=== PATIENT | female | born 1980 | race Caucasian/White ===

== ENCOUNTER 2016-08-23 01:47 | Emergency (ER) | payer MEDICARE, MEDICAID ==
[~2016-08-23 01:47] MED LIST: CLONI1TA PO; HARV1TAB PO; LEVO125T41 PO; LOES1TAB12 PO; NALT50TA4 PO; NAPR500T2 PO; PRIL20CA9 PO; SERO50TA PO
[2016-08-23] MEDS ORDERED: MAALOX 30 ML SUSP *UDC As Ordered ONE (03:38)
[2016-08-23] MEDS ORDERED: KETOROLAC 30 MG/ML VIAL (J1885) As Ordered ONE (03:49)
--- NOTE | 2016-08-23 04:49 | EDDOCDS ---
Physician Documentation [facility] Name: Jane Peck Age: 36 yrs Sex: Female : 1980 Arrival Date: 08/23/2016 Time: 01:47 Bed 11 Private MD: Rico Rivas D Disposition: 08/23/16 04:28 Discharged to Home/Self Care. Impression: Pain in left foot, Sprain of other specified parts of left knee. - Condition is Stable. - Discharge Instructions: Elastic Bandage and RICE, Crutch Use, Musculoskeletal Pain, Crutch Use, [id number]. - Prescriptions for Naprosyn 500 mg Oral Tablet - take 1 tablet by ORAL route 2 times per day take with food; 30 tablet. - Medication Reconciliation, Local Pharmacy Hours, Work Release Form - 2 day form. - Follow up: [facility]; When: Call to arrange an appointment; Reason: Continuance of care. - Problem is an acute exacerbation. - Symptoms have improved. Historical: - Allergies: PENICILLINS (Hives); - Home Meds: 1. levothyroxine 125 mcg Oral tab 1 tab once daily 2. omeprazole 40 mg Oral cpDR 2 times per day 3. Tylenol Oral 500mg (Last dose: 08/23/2016 01:00) - PMHx: Anxiety; GERD; Hepatitis C; Heroin Addiction - former; Hypothyroidism; Rehab from Heroin (Clean 55 days); - PSHx: Tubal ligation; - Social history: Smoking status: Patient uses tobacco products, heavy tobacco smoker. No barriers to communication noted, The patient speaks fluent Telugu, Speaks appropriately for age. - Family history: Not pertinent. - : The pt / caregiver states he / she is not on anticoagulants. Home medication list is obtained from the patient. - Exposure Risk Screening:: None identified. 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 2 in. (157.48 cm); 04:33 BP 130 / 70; Pulse 62; Resp 18; Temp 99.4(TE); Pulse Ox 97% on R/A; Pain 6/10; eric 01:57 Body Mass Index 34.75 (86.18 kg, 157.48 cm) cz MDM: 03:36 Alum-Mag Hydroxide-Simeth Suspension 225 mg-200 mg-25 mg/5 mL 30 ml PO once ordered. mm11 03:37 Foot, Complete Ordered. EDMS 03:37 Knee, Complete Ordered. EDMS 03:38 Toes Ordered. EDMS 03:45 ketorolac 60 mg IM once ordered. mm11 04:27 Crutches ordered. mm11 Administered Medications: 03:42 Drug: Alum-Mag Hydroxide-Simeth 30 ml [aluminum-mag hydroxide-simethicone 225 mg-200 mlc mg-25 mg/5 mL oral susp (30 mL)] Route: PO; 04:48 Follow up: Response: No Adverse Reaction mlc 04:14 Drug: ketorolac 60 mg [ketorolac 30 mg/mL (1 mL) injection solution (2 mL)] Route: IM; mlc Site: left gluteus; 04:48 Follow up: Response: Pain is decreased mlc Signatures: Dispatcher [employer] Mikael Winkler, RN RN cz Hoang Valiente, DO mm11 Jaquelin Pettit RN RN mlc IRMA
--- NOTE | 2016-08-23 04:49 | EDDOCDS ---
Nurse's Notes [facility] Name: Jane Peck Age: 36 yrs Sex: Female : 1980 Arrival Date: 08/23/2016 Time: 01:47 Bed 11 Private MD: Rico Rivas D Diagnosis: Pain in left foot;Sprain of other specified parts of left knee Presentation: 08/23 01:52 Presenting complaint: Patient states: she fell down stairs when going outside to [facility] injured left knee and left foot incident occurred about an hour ago. Adult Sepsis Screening: The patient does not have new or worsening altered mentation. Patient's respiratory rate is less than 22. Systolic blood pressure is greater than 100. Patient has a qSOFA score of 0- Negative Sepsis Screen. Suicide/Homicide risk assessment- the patient denies having any suicidal and/or homicidal ideations and does not present with any other emotional, behavioral or mental health complaints. 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 Transition of care: patient was not received from another setting of care. 01:52 Acuity: SONAL Level 4 cz 01:52 Method Of Arrival: Wheelchair cz Triage Assessment: 01:57 General: Appears uncomfortable. Pain: Location: left foot and left leg Pain currently cz is 7 out of 10 on a pain scale. HIV screening NA for this visit Offered previously. 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 levothyroxine 125 mcg Oral tab 1 tab once daily 2. omeprazole 40 mg Oral cpDR 2 times per day 3. Tylenol Oral 500mg (Last dose: 08/23/2016 01:00) - PMHx: Anxiety; GERD; Hepatitis C; Heroin Addiction - former; Hypothyroidism; Rehab from Heroin (Clean 55 days); - PSHx: Tubal ligation; - Social history: Smoking status: Patient uses tobacco products, heavy tobacco smoker. No barriers to communication noted, The patient speaks fluent Nepalese, Speaks appropriately for age. - Family history: Not pertinent. - : The pt / caregiver states he / she is not on anticoagulants. Home medication list is obtained from the patient. - Exposure Risk Screening:: None identified. Screenin:42 Screening information is obtained from the patient. Fall risk: No risks identified. mlc Assistance ADL's: requires no assistance with activities of daily living. Abuse/DV Screen: The patient / caregiver reports he/she is: not in a situation that causes fear, pain or injury. Nutritional screening: No deficits noted. Advance Directives: There is no active DNR order. home support is adequate. Assessment: 03:42 General: Appears in no apparent distress, comfortable, pt up and walking around room. . mlc Pain: Location: dorsum of left foot, left first toe, left second toe, left third toe, left fourth toe and left fifth toe Pain currently is 8 out of 10 on a pain scale. Neurological: Level of Consciousness is awake, alert, Oriented to person, place, time. Cardiovascular: Pulses are all present. Respiratory: Airway is patent Respiratory effort is even, unlabored, Respiratory pattern is regular. Derm: Skin is normal, Bruising that is on left first toe. Musculoskeletal: Circulation, motion, and sensation intact Range of motion intact in all extremities. 03:42 General: pt reports heartburn, pt medicated per order. mlc 04:14 Reassessment: Patient appears in no apparent distress at this time. pt medicated per [facility] order. resp easy/unlabored. . 04:47 General: Appears in no apparent distress, comfortable, Behavior is cooperative. [facility] Neurological: Level of Consciousness is awake, alert, Oriented to person, place, time. Respiratory: Airway is patent Respiratory effort is even, unlabored, Respiratory pattern is regular. Vital Signs: 01:57 BP 147 / 73; Pulse 100; Resp 16; Temp 99.7; Pulse Ox 96% on R/A; Weight 86.18 kg; cz Height 5 ft. 2 in. (157.48 cm); 04:33 BP 130 / 70; Pulse 62; Resp 18; Temp 99.4(TE); Pulse Ox 97% on R/A; Pain 6/10; eric 01:57 Body Mass Index 34.75 (86.18 kg, 157.48 cm) Vitals: 01:57 Log In Time: August 23, 2016 at 01:47. ED Course: 01:49 Patient visited by Greg Tom, Reg. pm4 01:49 Rico Rivas is Private Physician. pm4 01:49 Patient moved to Waiting pm4 01:51 Patient moved to Triage 1 01:55 Triage Initiated cz 02:01 Patient moved to Pre RCE cz 02:21 Patient moved to MTA Wait cz 02:52 Patient moved to Pre RCE cz 03:06 Jaquelin Pettit RN is Primary Nurse. cz 03:06 Patient moved to 11 cz 03:20 Patient visited by Nasreen Ny PCA. eric 03:29 Hoang Valiente DO is Attending Physician. mm11 03:29 Patient visited by Hoang Valiente DO. mm11 03:37 Patient visited by Hoang Valiente DO. mm11 03:42 The patient / caregiver is instructed regarding the plan of care and ED course. mlc 03:44 Patient visited by Jaquelin Pettit RN. mlc 04:03 Patient moved to Radiology galdino 04:14 Patient visited by Jaquelin Pettit RN. mlc 04:15 Patient moved to 11 mlc 04:27 [facility] is Referral Physician. mm11 04:33 Patient visited by Nasreen Ny PCA. eric 04:47 No IV's were initiated during this patient's visit. No procedures done that require mlc assistance. Administered Medications: 03:42 Drug: Alum-Mag Hydroxide-Simeth 30 ml [aluminum-mag hydroxide-simethicone 225 mg-200 mlc mg-25 mg/5 mL oral susp (30 mL)] Route: PO; 04:48 Follow up: Response: No Adverse Reaction mlc 04:14 Drug: ketorolac 60 mg [ketorolac 30 mg/mL (1 mL) injection solution (2 mL)] Route: IM; mlc Site: left gluteus; 04:48 Follow up: Response: Pain is decreased [facility] Order Results: There are currently no results for this order. Outcome: 04:28 Discharge ordered by Provider. mm11 04:47 Discharge Assessment: Patient awake, alert and oriented x 3. No cognitive and/or mlc functional deficits noted. Patient verbalized understanding of disposition instructions. patient administered narcotics - no. The following High Risk Discharge criteria are identified: None. Discharged to home with crutches, with significant other. Condition: good Condition: stable. Discharge instructions given to patient, Instructed on discharge instructions, follow up and referral plans. medication usage, Rest, Ice, Compression and Elevation. crutch walking, Demonstrated understanding of instructions, medications, Pt was receptive of discharge instructions/ teaching. Prescriptions given X 1. No special radiology studies were completed. Property sent home with patient. 04:48 Patient left the ED. [facility] Signatures: Mikael Cano, RN RN Felipe Perez Matthew, DO mm11 Nasreen Ny, NAPHTHOL SOAPING MACHINE OPERATOR NAPHTHOL SOAPING MACHINE OPERATOR Jaquelin Cortez,MINGO AGUILA [facility] Greg Tom, Reg Reg pm4 MTDD
--- NOTE | 2016-08-23 07:20 | REP ---
Clinical: Trauma. Technique: AP, lateral, bilateral oblique views left foot . Findings: The osseous structures and joint spaces are intact and normal. There is no evidence for acute fracture or dislocation. Surrounding soft tissues are unremarkable. No subcutaneous emphysema or radiodense foreign body. Impression: No acute fracture or dislocation. Signed by Tomás Berry MD 08/23/2016 07:12 A
--- NOTE | 2016-08-23 07:21 | REP ---
Clinical: Trauma. Technique: AP, lateral, bilateral oblique and sunrise views left knee . Findings: The osseous structures and joint spaces are intact and normal. There is no evidence for acute fracture or dislocation. No joint effusion is appreciated. Surrounding soft tissues are unremarkable. No subcutaneous emphysema or radiodense foreign body. Impression: No acute fracture or dislocation. Signed by Tomás Berry MD 08/23/2016 07:13 A
--- NOTE | 2016-08-25 05:49 | EDDOCDS ---
Physician Documentation [facility] Name: Jane Peck Age: 36 yrs Sex: Female : 1980 Arrival Date: 08/23/2016 Time: 01:47 Bed 11 Private MD: Rico Rivas D Disposition: 08/23/16 04:28 Discharged to Home/Self Care. Impression: Pain in left foot, Sprain of other specified parts of left knee. - Condition is Stable. - Discharge Instructions: Elastic Bandage and RICE, Crutch Use, Musculoskeletal Pain, Crutch Use, [id number]. - Prescriptions for Naprosyn 500 mg Oral Tablet - take 1 tablet by ORAL route 2 times per day take with food; 30 tablet. - Medication Reconciliation, Local Pharmacy Hours, Work Release Form - 2 day form. - Follow up: [facility]; When: Call to arrange an appointment; Reason: Continuance of care. - Problem is an acute exacerbation. - Symptoms have improved. Historical: - Allergies: PENICILLINS (Hives); - Home Meds: 1. levothyroxine 125 mcg Oral tab 1 tab once daily 2. omeprazole 40 mg Oral cpDR 2 times per day 3. Tylenol Oral 500mg (Last dose: 08/23/2016 01:00) - PMHx: Anxiety; GERD; Hepatitis C; Heroin Addiction - former; Hypothyroidism; Rehab from Heroin (Clean 55 days); - PSHx: Tubal ligation; - Social history: Smoking status: Patient uses tobacco products, heavy tobacco smoker. No barriers to communication noted, The patient speaks fluent Sinhala, Speaks appropriately for age. - Family history: Not pertinent. - : The pt / caregiver states he / she is not on anticoagulants. Home medication list is obtained from the patient. - Exposure Risk Screening:: None identified. 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 2 in. (157.48 cm); 04:33 BP 130 / 70; Pulse 62; Resp 18; Temp 99.4(TE); Pulse Ox 97% on R/A; Pain 6/10; eric 01:57 Body Mass Index 34.75 (86.18 kg, 157.48 cm) cz MDM: 03:36 Alum-Mag Hydroxide-Simeth Suspension 225 mg-200 mg-25 mg/5 mL 30 ml PO once ordered. mm11 03:37 Foot, Complete Ordered. EDMS 03:37 Knee, Complete Ordered. EDMS 03:38 Toes Ordered. EDMS 03:45 ketorolac 60 mg IM once ordered. mm11 04:27 Crutches ordered. mm11 04:53 Financial registration complete. hs2 04:54 [facility] Payment Agreement was scanned into [employer] and attached to record. hs2 12:12 T-Sheet-- Draft Copy was scanned into [employer] and attached to record. gb Administered Medications: 03:42 Drug: Alum-Mag Hydroxide-Simeth 30 ml [aluminum-mag hydroxide-simethicone 225 mg-200 mlc mg-25 mg/5 mL oral susp (30 mL)] Route: PO; 04:48 Follow up: Response: No Adverse Reaction mlc 04:14 Drug: ketorolac 60 mg [ketorolac 30 mg/mL (1 mL) injection solution (2 mL)] Route: IM; mlc Site: left gluteus; 04:48 Follow up: Response: Pain is decreased mlc Signatures: Dispatcher [employer] EDMikael Lay RN RN cz Sindhu Waller, Reg Reg gb Hoang Valiente, DO mm11 Jaquelin Pettit RN RN [facility] Yudi Tarango, Reg Reg hs2 The chart was reviewed and I authenticate all verbal orders and agree with the evaluation and treatment provided.Attachments: 04:54 [facility] Payment Agreement hs2 12:12 T-Sheet-- Draft Copy gb Chart Complete MTDD
--- NOTE | 2016-08-25 05:49 | EDDOCDS ---
Nurse's Notes [facility] Name: Jane Peck Age: 36 yrs Sex: Female : 1980 Arrival Date: 08/23/2016 Time: 01:47 Bed 11 Private MD: Rico Rivas D Diagnosis: Pain in left foot;Sprain of other specified parts of left knee Presentation: 08/23 01:52 Presenting complaint: Patient states: she fell down stairs when going outside to [facility] injured left knee and left foot incident occurred about an hour ago. Adult Sepsis Screening: The patient does not have new or worsening altered mentation. Patient's respiratory rate is less than 22. Systolic blood pressure is greater than 100. Patient has a qSOFA score of 0- Negative Sepsis Screen. Suicide/Homicide risk assessment- the patient denies having any suicidal and/or homicidal ideations and does not present with any other emotional, behavioral or mental health complaints. 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 Transition of care: patient was not received from another setting of care. 01:52 Acuity: SONAL Level 4 cz 01:52 Method Of Arrival: Wheelchair cz Triage Assessment: 01:57 General: Appears uncomfortable. Pain: Location: left foot and left leg Pain currently cz is 7 out of 10 on a pain scale. HIV screening NA for this visit Offered previously. 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 levothyroxine 125 mcg Oral tab 1 tab once daily 2. omeprazole 40 mg Oral cpDR 2 times per day 3. Tylenol Oral 500mg (Last dose: 08/23/2016 01:00) - PMHx: Anxiety; GERD; Hepatitis C; Heroin Addiction - former; Hypothyroidism; Rehab from Heroin (Clean 55 days); - PSHx: Tubal ligation; - Social history: Smoking status: Patient uses tobacco products, heavy tobacco smoker. No barriers to communication noted, The patient speaks fluent Liberian, Speaks appropriately for age. - Family history: Not pertinent. - : The pt / caregiver states he / she is not on anticoagulants. Home medication list is obtained from the patient. - Exposure Risk Screening:: None identified. Screenin:42 Screening information is obtained from the patient. Fall risk: No risks identified. mlc Assistance ADL's: requires no assistance with activities of daily living. Abuse/DV Screen: The patient / caregiver reports he/she is: not in a situation that causes fear, pain or injury. Nutritional screening: No deficits noted. Advance Directives: There is no active DNR order. home support is adequate. Assessment: 03:42 General: Appears in no apparent distress, comfortable, pt up and walking around room. . mlc Pain: Location: dorsum of left foot, left first toe, left second toe, left third toe, left fourth toe and left fifth toe Pain currently is 8 out of 10 on a pain scale. Neurological: Level of Consciousness is awake, alert, Oriented to person, place, time. Cardiovascular: Pulses are all present. Respiratory: Airway is patent Respiratory effort is even, unlabored, Respiratory pattern is regular. Derm: Skin is normal, Bruising that is on left first toe. Musculoskeletal: Circulation, motion, and sensation intact Range of motion intact in all extremities. 03:42 General: pt reports heartburn, pt medicated per order. mlc 04:14 Reassessment: Patient appears in no apparent distress at this time. pt medicated per [facility] order. resp easy/unlabored. . 04:47 General: Appears in no apparent distress, comfortable, Behavior is cooperative. [facility] Neurological: Level of Consciousness is awake, alert, Oriented to person, place, time. Respiratory: Airway is patent Respiratory effort is even, unlabored, Respiratory pattern is regular. Vital Signs: 01:57 BP 147 / 73; Pulse 100; Resp 16; Temp 99.7; Pulse Ox 96% on R/A; Weight 86.18 kg; cz Height 5 ft. 2 in. (157.48 cm); 04:33 BP 130 / 70; Pulse 62; Resp 18; Temp 99.4(TE); Pulse Ox 97% on R/A; Pain 6/10; eric 01:57 Body Mass Index 34.75 (86.18 kg, 157.48 cm) Vitals: 01:57 Log In Time: August 23, 2016 at 01:47. ED Course: 01:49 Patient visited by Greg Tom, Reg. pm4 01:49 Rico Rivas is Private Physician. pm4 01:49 Patient moved to Waiting pm4 01:51 Patient moved to Triage 1 01:55 Triage Initiated cz 02:01 Patient moved to Pre RCE cz 02:21 Patient moved to MTA Wait cz 02:52 Patient moved to Pre RCE cz 03:06 Jaquelin Pettit RN is Primary Nurse. cz 03:06 Patient moved to 11 cz 03:20 Patient visited by Nasreen Ny PCA. eric 03:29 Hoang Valiente DO is Attending Physician. mm11 03:29 Patient visited by Hoang Valiente DO. mm11 03:37 Patient visited by Hoang Valiente DO. mm11 03:42 The patient / caregiver is instructed regarding the plan of care and ED course. mlc 03:44 Patient visited by Jaquelin Pettit RN. mlc 04:03 Patient moved to Radiology galdino 04:14 Patient visited by Jaquelin Pettit RN. mlc 04:15 Patient moved to 11 mlc 04:27 [facility] is Referral Physician. mm11 04:33 Patient visited by Nasreen Ny PCA. eric 04:47 No IV's were initiated during this patient's visit. No procedures done that require mlc assistance. 04:54 [facility] Payment Agreement was scanned into [employer] and attached to record. hs2 04:58 Patient name changed from Jane\S\\S\Cisco\S\ to Jane\S\ \S\Cisco. EDMS 07:33 Foot, Complete Returned. EDMS 07:33 Knee, Complete Returned. EDMS 12:12 T-Sheet-- Draft Copy was scanned into [employer] and attached to record. gb Administered Medications: 03:42 Drug: Alum-Mag Hydroxide-Simeth 30 ml [aluminum-mag hydroxide-simethicone 225 mg-200 mlc mg-25 mg/5 mL oral susp (30 mL)] Route: PO; 04:48 Follow up: Response: No Adverse Reaction mlc 04:14 Drug: ketorolac 60 mg [ketorolac 30 mg/mL (1 mL) injection solution (2 mL)] Route: IM; mlc Site: left gluteus; 04:48 Follow up: Response: Pain is decreased mlc Order Results: Radiology Order: Foot, Complete Test: Foot, Complete REASON FOR EXAMINATION: Trauma; Clinical: Trauma.; ; Technique: AP, lateral, bilateral oblique views left foot .; ; Findings: The osseous structures and joint spaces are intact and normal. There; is no evidence for acute fracture or dislocation. Surrounding soft tissues are; unremarkable. No subcutaneous emphysema or radiodense foreign body.; ; Impression:; No acute fracture or dislocation.; ; ; Signed by; Tomás Berry MD 08/23/2016 07:12 A; Radiology Order: Knee, Complete Test: Knee, Complete REASON FOR EXAMINATION: Trauma; Clinical: Trauma.; ; Technique: AP, lateral, bilateral oblique and sunrise views left knee .; ; Findings: The osseous structures and joint spaces are intact and normal. There; is no evidence for acute fracture or dislocation. No joint effusion is; appreciated. Surrounding soft tissues are unremarkable. No subcutaneous; emphysema or radiodense foreign body.; ; Impression:; No acute fracture or dislocation.; ; ; Signed by; Tomás Berry MD 08/23/2016 07:13 A; Outcome: 04:28 Discharge ordered by Provider. mm11 04:47 Discharge Assessment: Patient awake, alert and oriented x 3. No cognitive and/or mlc functional deficits noted. Patient verbalized understanding of disposition instructions. patient administered narcotics - no. The following High Risk Discharge criteria are identified: None. Discharged to home with crutches, with significant other. Condition: good Condition: stable. Discharge instructions given to patient, Instructed on discharge instructions, follow up and referral plans. medication usage, Rest, Ice, Compression and Elevation. crutch walking, Demonstrated understanding of instructions, medications, Pt was receptive of discharge instructions/ teaching. Prescriptions given X 1. No special radiology studies were completed. Property sent home with patient. 04:48 Patient left the ED. [facility] Signatures: Dispatcher [employer] EDKS Mikael Cano RN RN cz Bartlett, Floyd fab Barnhardt, Gloria, Reg Reg gb Hoang Valiente, DO mm11 Nasreen Ny, MEMBER SERVICES REPRESENTATIVE MEMBER SERVICES REPRESENTATIVE Jaquelin Cortez RN RN [facility] Yudi Tarango, Reg Reg hs2 Greg Tom, Reg Reg pm4 Chart Complete MTDD
--- NOTE | 2016-08-25 05:49 | EDDOCDS ---
Physician Documentation [facility] Name: Jane Peck Age: 36 yrs Sex: Female : 1980 Arrival Date: 08/23/2016 Time: 01:47 Bed 11 Private MD: Rico Rivas D Disposition: 08/23/16 04:28 Discharged to Home/Self Care. Impression: Pain in left foot, Sprain of other specified parts of left knee. - Condition is Stable. - Discharge Instructions: Elastic Bandage and RICE, Crutch Use, Musculoskeletal Pain, Crutch Use, [id number]. - Prescriptions for Naprosyn 500 mg Oral Tablet - take 1 tablet by ORAL route 2 times per day take with food; 30 tablet. - Medication Reconciliation, Local Pharmacy Hours, Work Release Form - 2 day form. - Follow up: [facility]; When: Call to arrange an appointment; Reason: Continuance of care. - Problem is an acute exacerbation. - Symptoms have improved. Historical: - Allergies: PENICILLINS (Hives); - Home Meds: 1. levothyroxine 125 mcg Oral tab 1 tab once daily 2. omeprazole 40 mg Oral cpDR 2 times per day 3. Tylenol Oral 500mg (Last dose: 08/23/2016 01:00) - PMHx: Anxiety; GERD; Hepatitis C; Heroin Addiction - former; Hypothyroidism; Rehab from Heroin (Clean 55 days); - PSHx: Tubal ligation; - Social history: Smoking status: Patient uses tobacco products, heavy tobacco smoker. No barriers to communication noted, The patient speaks fluent Urdu, Speaks appropriately for age. - Family history: Not pertinent. - : The pt / caregiver states he / she is not on anticoagulants. Home medication list is obtained from the patient. - Exposure Risk Screening:: None identified. 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 2 in. (157.48 cm); 04:33 BP 130 / 70; Pulse 62; Resp 18; Temp 99.4(TE); Pulse Ox 97% on R/A; Pain 6/10; eric 01:57 Body Mass Index 34.75 (86.18 kg, 157.48 cm) cz MDM: 03:36 Alum-Mag Hydroxide-Simeth Suspension 225 mg-200 mg-25 mg/5 mL 30 ml PO once ordered. mm11 03:37 Foot, Complete Ordered. EDMS 03:37 Knee, Complete Ordered. EDMS 03:38 Toes Ordered. EDMS 03:45 ketorolac 60 mg IM once ordered. mm11 04:27 Crutches ordered. mm11 04:53 Financial registration complete. hs2 04:54 [facility] Payment Agreement was scanned into Thu[employer] and attached to record. hs2 12:12 T-Sheet-- Draft Copy was scanned into Thuuz and attached to record. gb Administered Medications: 03:42 Drug: Alum-Mag Hydroxide-Simeth 30 ml [aluminum-mag hydroxide-simethicone 225 mg-200 mlc mg-25 mg/5 mL oral susp (30 mL)] Route: PO; 04:48 Follow up: Response: No Adverse Reaction mlc 04:14 Drug: ketorolac 60 mg [ketorolac 30 mg/mL (1 mL) injection solution (2 mL)] Route: IM; mlc Site: left gluteus; 04:48 Follow up: Response: Pain is decreased mlc Signatures: Dispatcher [employer] EDMikael Lay RN RN cz Sindhu Waller, Reg Reg gb Hoang Valiente, DO mm11 Jaquelin Pettit RN RN [facility] Yudi Tarango, Reg Reg hs2 The chart was reviewed and I authenticate all verbal orders and agree with the evaluation and treatment provided.Attachments: 04:54 [facility] Payment Agreement hs2 12:12 T-Sheet-- Draft Copy gb Chart Complete MTDD
== END 2016-08-23 04:48 | disposition home or self-care (01) ==
LOC: M ED 01:47
DX: S83.92XA Sprain of unspecified site of left knee, initial encounter (principal); S93.602A Unspecified sprain of left foot, initial encounter; W10.9XXA Fall (on) (from) unspecified stairs and steps, initial encounter; Y92.018 Other place in single-family (private) house as the place of occurrence of the external cause; Y93.89 Activity, other specified; Y99.8 Other external cause status; K21.9 Gastro-esophageal reflux disease without esophagitis; B19.20 Unspecified viral hepatitis C without hepatic coma; E03.9 Hypothyroidism, unspecified; F11.21 Opioid dependence, in remission; Z79.899 Other long term (current) drug therapy; Z79.52 Long term (current) use of systemic steroids; Z88.0 Allergy status to penicillin; F17.210 Nicotine dependence, cigarettes, uncomplicated
CPT/HCPCS: 73564; 73630; 96372; 99284; J1885

== ENCOUNTER → 2016-09-21 | Outpatient (CLI) | payer MEDICARE, MEDICAID ==
[2016-09-21 15:57] LABS: CONTROL LINE UCG INT CTR LINE PRESENT
[2016-09-21 15:58] LABS: BASO % 0.3 % (0.0-1.0); EOS # 0.3 K/mm3 (0.0-0.50); EOS % 4.9 % (0.0-3.0); LARGE UNSTAINED CELL # 0.2 K/mm3 (0.0-0.4); LARGE UNSTAINED CELL % 2.6 % (0.0-4.0); LYMPH # 1.7 K/mm3 (1.5-4.5); LYMPH % 27.3 % (24.0-44.0); MEAN CORPUSCULAR HEMOGLOBIN 28.4 pg (27.0-33.0); MEAN CORPUSCULAR HGB CONC 33.1 g/dl (32.0-36.5); MEAN CORPUSCULAR VOLUME 85.9 fl (80.0-96.0); MONO # 0.4 K/mm3 (0.0-0.8); MONO % 7.5 % (0.0-5.0); NEUTROPHILS # 3.3 K/mm3 (1.8-7.7); NEUTROPHILS % 57.4 % (36.0-66.0); PLATELET COUNT, AUTOMATED 301 k/mm3 (150-450); RED CELL DISTRIBUTION WIDTH 13.6 % (11.5-14.5); WHITE BLOOD COUNT 5.7 K/mm3 (4.0-10.0)
[2016-09-21 16:24] LABS: ALBUMIN 3.6 GM/DL (3.2-5.2); ALBUMIN/GLOBULIN RATIO 1.16 (1.00-1.93); ALKALINE PHOSPHATASE 62 U/L (45-117); ALT/SGPT 29 U/L (12-78); ANION GAP 7 MEQ/L (8-16); AST/SGOT 22 U/L (15-37); BILIRUBIN,TOTAL 0.3 MG/DL (0.2-1.0); BLOOD UREA NITROGEN 7 MG/DL (7-18); CALCIUM LEVEL 9.1 MG/DL (8.5-10.1); CARBON DIOXIDE LEVEL 29 MEQ/L (21-32); CHLORIDE LEVEL 105 MEQ/L (98-107); CREATININE FOR GFR 0.79 MG/DL (0.55-1.02); GLOMERULAR FILTRATION RATE > 60.0 (>60); GLUCOSE, FASTING 95 MG/DL (70-105); SODIUM LEVEL 141 MEQ/L (136-145); TOTAL PROTEIN 6.7 GM/DL (6.4-8.2)
[2016-09-22 12:44] LABS: HIV SCRN NEGATIVE (NEGATIVE); HIV SCRN1 NEGATIVE (NEGATIVE)
[2016-09-22 12:46] LABS: CONTROL LINE INT CTR LINE PRESENT
== END ==
LOC: M LAB 15:11
PROVIDERS: ATTEND Family Medicine
DX: F11.20 Opioid dependence, uncomplicated (principal)

== ENCOUNTER 2016-10-09 21:37 | Inpatient (IN) | payer MEDICARE, MEDICAID ==
[~2016-10-09] VITALS: Ht 157.5 cm; Wt 83.3 kg
[2016-10-09 22:55] LABS: MEAN CORPUSCULAR HEMOGLOBIN 27.1 pg (27.0-33.0); MEAN CORPUSCULAR HGB CONC 32.8 g/dl (32.0-36.5); MEAN CORPUSCULAR VOLUME 82.7 fl (80.0-96.0); WHITE BLOOD COUNT 7.1 K/mm3 (4.0-10.0)
[2016-10-09 23:14] LABS: CONTROL LINE INT CTR LINE PRESENT; METHADONE URINE POSITIVE (NEGATIVE); TRICYCLIC ANTIDEPRESS URINE NEGATIVE (NEGATIVE)
[2016-10-09 23:16] LABS: CONTROL LINE HCG INT CTR LINE PRESENT
[2016-10-09 23:33] LABS: ALBUMIN 3.9 GM/DL (3.2-5.2); ALBUMIN/GLOBULIN RATIO 1.11 (1.00-1.93); ALKALINE PHOSPHATASE 62 U/L (45-117); ALT/SGPT 26 U/L (12-78); ANION GAP 8 MEQ/L (8-16); AST/SGOT 21 U/L (15-37); BILIRUBIN,DIRECT < 0.1 MG/DL (0.0-0.2); BILIRUBIN,TOTAL 0.3 MG/DL (0.2-1.0); BLOOD UREA NITROGEN 4 MG/DL (7-18); CALCIUM LEVEL 8.8 MG/DL (8.5-10.1); CARBON DIOXIDE LEVEL 28 MEQ/L (21-32); CHLORIDE LEVEL 107 MEQ/L (98-107); CREATININE FOR GFR 0.81 MG/DL (0.55-1.02); GLOMERULAR FILTRATION RATE > 60.0 (>60); GLUCOSE, FASTING 92 MG/DL (70-105); POTASSIUM SERUM 3.4 MEQ/L (3.5-5.1); SODIUM LEVEL 143 MEQ/L (136-145); TOTAL PROTEIN 7.4 GM/DL (6.4-8.2)
[2016-10-09] MEDS ORDERED: POTASSIUM CHLORIDE 10 MEQ SR TABLET PO ONE (23:45)
[2016-10-10] MEDS ORDERED: MAALOX 30 ML SUSP *UDC PO PRN (00:15)
[2016-10-10] MEDS ORDERED: MOM 30ML SUSPENSION UDC PO PRN (00:15)
[2016-10-10] MEDS ORDERED: traZODone 100 MG TAB PO PRN (00:15)
[2016-10-10] MEDS ORDERED: ACETAMINOPHEN TAB 650MG DOSE (2X325MG) PO PRN (00:15)
[2016-10-10] MEDS ORDERED: chlordiazePOXIDE 25 MG CAP PO PRN (00:15)
[2016-10-10 01:09] VITALS: BP 126/64
[2016-10-10] MEDS: LEVOTHYROXINE 0.125 MG TAB (125 MCG) PO SCH (06:19)
[2016-10-10] MEDS: OMEPRAZOLE 20 MG CAP PO SCH (09:20)
[2016-10-10] MEDS: NICOTINE 21MG/24HR 1 EA TRANSDERMAL TD SCH (09:21)
--- NOTE | 2016-10-10 09:55 | HPEPDOC ---
Medical History and Physical Date of Admission Oct 10, 2016 at 00:06 History and Physical PCP: Dr Rivas. ATTENDING: Dr. Irwin Roberson HPI: 36yoF admitted to [facility] for Unspecified depressive disorder, being medically examined today. No acute medical complaints today. Denies any fevers, chills, weakness, fatigue, DANIEL, CP, SOB, cough, palpitations, abdominal pain, N/V /D or changes in bowel or bladder habits. PMHx: Anxiety depression hypothyroid GERD substance use tobacco use H/O Hepatitis C- treated by Dr Pavon completed 03/22. PSHX: Bilateral tubal ligation SOCHX: Resides in: [place] Marital Status: Kids: 3 Employment: unemployed Tobacco use: 1 ppd ETOH: denies Illicit Drugs: heroin, crack, marijuana IV Drug Use: heroin Tattoos done unprofessionally: x1 FAMHX: Mother: Alive, well Father: Alive, well Siblings: Alive, well Children: Alive, well Unexpected deaths due to medical reasons: None. ROS: As noted in HPI, otherwise 11pt ROS of systems reviewed and remarkable only for LMP 09/23 PE: GEN: 36yoF, appears stated age. Well-nourished, well developed. No acute distress. Alert and oriented x 3. Pleasant, interactive. HEENT: Normocephalic, atraumatic. Pupils are equal, round, and reactive to light. Extraocular movements are intact. No nystagmus appreciated. Sclera are nonicteric. Conjunctiva without injection. Nose midline. Nasal turbinates without bogginess. EACs both patent BL. TMs both visualized and angelo with good cone of light, no bulging or erythema. No facial asymmetry. Moist mucous membranes. Dentition fair. Pharynx pink and moist, no cobblestoning. Neck supple , trachea midline. No lymphadenopathy or thyromegaly appreciated. CHEST: Regular rate and rhythm, +S1, +S2 LUNGS: Clear to auscultation bilaterally. No wheezes, rales, or rhonchi. Breathing appears symmetric and easy. Patient is speaking in full sentences. No accessory muscle use. ABD: Round, soft, non-tender, non-distended. +Bowel sounds throughout. No rebound or guarding. No costovertebral angle tenderness. EXT: Pulses 2+ bilaterally dorsalis pedis and radial. No lower extremity edema appreciated. SKIN: [place], dry, warm. Capillary refill <2sec. No rashes. NEURO: Alert and oriented x 3. Cranial nerves III-XII are intact. No focal deficits appreciated. EKG: pending. A&P: 36yoF admitted to [facility] for Unspecified depressive disorder 1. Psych. Plan per Psychiatry. Obtain baseline EKG to assure the safety of psychiatric medications as they can prolong the QT interval. 2. Nicotine dependence. Patch available. 3. Hypothyroid. Continue Synthroid. TSH is noted WNL. 4. Follow up with PCP on discharge. 5. Substance use. Per psychiatry. 6. GERD. Continue Prilosec 20mg daily. 7. Hypokalemia. Supplement given in ED. Recheck BMP. 8. Staff member present throughout exam, rai Diaz. Vital Signs Vital Signs Label Value Date Time Patient Temperature 97.0 degrees F 10/10/16108 Temperature Source Tympanic 10/10/16108 Pulse 67 10/10/16108 Respiratory Rate 67 bpm 10/10/16108 Blood Pressure Assessment 126/64 (84) 10/10/16108 Bedside Pulse Oximetry 96 % 10/10/16 0040 Item Value Date Time Oxygen Delivery Method Room Air 10/10/16108 Laboratory Data Labs 24H Laboratory Tests 2 10/09/16 22:50: Acetaminophen Level < 2.0L, Aspartate Amino Transf (AST/SGOT) 21, Alanine Aminotransferase (ALT/SGPT) 26, Alkaline Phosphatase 62, Total Bilirubin 0.3, Direct Bilirubin < 0.1, Albumin 3.9, Albumin/Globulin Ratio 1.11, Anion Gap 8, Calcium Level 8.8, Ethyl Alcohol Level < 0.003, Glomerular Filtration Rate > 60.0, Human Chorionic Gonadotropin, Qual NEGATIVE, Salicylates Level 3.0L, Thyroid Stimulating Hormone (TSH) 2.970, Total Protein 7.4, Urine Amphetamines Screen NEGATIVE, Urine Benzodiazepines Screen NEGATIVE, Urine Opiates Screen POSITIVEH, Urine Barbiturates Screen NEGATIVE, Urine Cannabinoids Screen NEGATIVE, Urine Cocaine Metabolite Screen POSITIVEH, Urine Methadone Screen POSITIVEH, Urine Tricyclic Antidepressants NEGATIVE CBC/BMP Laboratory Tests 10/09/16 22:50 Red Blood Count 4.72, Mean Corpuscular Volume 82.7, Mean Corpuscular Hemoglobin 27.1, Mean Corpuscular Hemoglobin Concent 32.8, Red Cell Distribution Width 13.0 Home Medications Scheduled Omeprazole (Prilosec) 20 Mg Cap 20 MG PO DAILY GERD Miscellaneous Medications Levothyroxine Sodium (Levoxyl) 125 Mcg Tab 125 MCG PO THYROID Allergies Coded Allergies: Penicillins (Verified Allergy, Intermediate, HIVES, 10/09/16) Penicillins Cross Reactors (Verified Allergy, Intermediate, HIVES, 11/07/12) Sulfa Drugs (Verified Adverse Reaction, Mild, NAUSEA, 10/09/16) Sulfa Drugs Cross Reactors (Verified Adverse Reaction, Mild, NAUSEA, ) Rachael Weeks Oct 10, 2016 09:55
[2016-10-10 10:54] VITALS: BP 140/94
[2016-10-10] MEDS: MULTIVITAMINS/MINERALS THERAP 1 TAB PO SCH (11:44)
[2016-10-10] MEDS: METHADONE 10 MG TAB (S0109) PO SCH ×2 (11:45→21:04)
[2016-10-10] MEDS: VENLAFAXINE **XR** 37.5 MG CAPSULE PO SCH (11:45)
[2016-10-10] MEDS: THIAMINE 100 MG TAB PO SCH (11:45)
[2016-10-10 11:51] LABS: ANION GAP 7 MEQ/L (8-16); BLOOD UREA NITROGEN 6 MG/DL (7-18); CALCIUM LEVEL 8.9 MG/DL (8.5-10.1); CARBON DIOXIDE LEVEL 28 MEQ/L (21-32); CHLORIDE LEVEL 107 MEQ/L (98-107); CREATININE FOR GFR 0.83 MG/DL (0.55-1.02); GLOMERULAR FILTRATION RATE > 60.0 (>60); GLUCOSE, FASTING 103 MG/DL (70-105); POTASSIUM SERUM 3.5 MEQ/L (3.5-5.1); SODIUM LEVEL 142 MEQ/L (136-145)
--- NOTE | 2016-10-10 15:01 | ECGEPIP ---
Stationary ECG Study [facility] Test Date: 2016-10-10 Pat Name: DILLON ORTEGA Department: Room: [place] [address] Gender: F Care Provider: : 1980 Requested By: Rachael Weeks Order Number: [id number] Reading MD: Dawna Beth Measurements Intervals Elizabeth Rate: 53 P: 44 WV: 143 QRS: 50 QRSD: 74 T: 30 QT: 399 QTc: 377 Interpretive Statements SINUS BRADYCARDIA SEPTAL MYOCARDIAL INFARCTION, OF INDETERMINATE AGE PRWP c/w 08/12/14 RATE SLOWER Electronically Signed On 10-10-2016 15:01:20 EST by Dawna Beth
[2016-10-10 18:00] VITALS: BP 125/64
[2016-10-10] MEDS: chlordiazePOXIDE 25 MG CAP PO SCH (21:04)
[2016-10-10] MEDS: FOLIC ACID 1 MG TAB PO SCH (21:05)
[2016-10-11] MEDS: LEVOTHYROXINE 0.125 MG TAB (125 MCG) PO SCH (06:15)
[2016-10-11 06:36] VITALS: BP 144/85
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
[2016-10-11] MEDS: THIAMINE 100 MG TAB PO SCH (08:39)
[2016-10-11] MEDS: chlordiazePOXIDE 25 MG CAP PO SCH ×2 (08:40→21:17)
[2016-10-11] MEDS: METHADONE 10 MG TAB (S0109) PO SCH ×2 (08:40→21:18)
[2016-10-11] MEDS: NICOTINE 21MG/24HR 1 EA TRANSDERMAL TD SCH (08:40)
[2016-10-11] MEDS: MULTIVITAMINS/MINERALS THERAP 1 TAB PO SCH (08:40)
[2016-10-11] MEDS: VENLAFAXINE **XR** 37.5 MG CAPSULE PO SCH (08:40)
[2016-10-11] MEDS: OMEPRAZOLE 20 MG CAP PO SCH (08:40)
[2016-10-11] MEDS: traZODone 50 MG TAB PO PRN (21:17)
[2016-10-11] MEDS: traZODone 100 MG TAB PO SCH (21:17)
[2016-10-11] MEDS: FOLIC ACID 1 MG TAB PO SCH (21:17)
[2016-10-11 22:28] VITALS: BP 119/65
[2016-10-12] MEDS: LEVOTHYROXINE 0.125 MG TAB (125 MCG) PO SCH (06:09)
[2016-10-12 06:25] VITALS: BP 105/55
--- NOTE | 2016-10-12 07:24 | IPN ---
DATE: 10/11/2016 36-year-old female with history of depression and opiate dependency admitted with significant symptoms of depression and suicidal ideation. The patient could not contract for safety. She was afraid she will end up hurting herself. MEDICATIONS: - Effexor XR 37.5 mg every morning - trazodone 100 mg by mouth at bedtime - Librium 25 mg by mouth twice a day - folic acid, thiamine and multivitamins as per detox protocol - methadone 10 mg by mouth twice a day SUBJECTIVE: "I have some withdrawal and I could not sleep last night". OBJECTIVE: Patient is motivated for treatment. Reports symptoms of opiate withdrawal and insomnia. The patient is insightful. The patient is depressed with restricted facial expression and psychomotor retardation. The patient is able to contract for safety during her hospitalization. MENTAL STATUS EXAMINATION: She is dressed in [facility]. The patient has poor eye contact. Speech is slow and monotone. Mood is depressed and anxious. Affect is restricted. No delusions or hallucinations. Short and usp memory are fair. Patient is fully oriented. Associations are intact. Thinking is logical. Thought content is appropriate. Patient is able to contract for safety and denies suicidal or homicidal ideation during the interview. Insight and judgment is limited. ASSESSMENT: 1. Depression. 2. Suicidal ideation. 3. Opiate dependency. PLAN: 1. Increase Effexor XR to 75 mg by mouth every morning. 2. Increase trazodone to 100 mg by mouth at bedtime plus 50 mg as needed for insomnia. 3. Continue Librium 25 mg by mouth twice a day. 4. Continue methadone 10 mg by mouth twice a day. 5. Continue thiamine, folic acid and multivitamins as per detox protocol.
[2016-10-12] MEDS: NICOTINE 21MG/24HR 1 EA TRANSDERMAL TD SCH (09:30)
[2016-10-12] MEDS: MULTIVITAMINS/MINERALS THERAP 1 TAB PO SCH (09:31)
[2016-10-12] MEDS: VENLAFAXINE **XR** 75MG CAPSULE PO SCH (09:31)
[2016-10-12] MEDS: THIAMINE 100 MG TAB PO SCH (09:31)
[2016-10-12] MEDS: METHADONE 10 MG TAB (S0109) PO SCH (09:31)
[2016-10-12] MEDS: OMEPRAZOLE 20 MG CAP PO SCH (09:31)
[2016-10-12] MEDS: chlordiazePOXIDE 25 MG CAP PO SCH ×2 (09:31→21:43)
[2016-10-12 18:00] VITALS: BP 111/61
[2016-10-12] MEDS: FOLIC ACID 1 MG TAB PO SCH (21:00)
[2016-10-12] MEDS ORDERED: METHADONE 10 MG TAB (S0109) PO SCH (21:00)
[2016-10-12] MEDS: traZODone 100 MG TAB PO SCH (21:43)
[2016-10-12] MEDS: traZODone 50 MG TAB PO PRN (23:23)
[2016-10-13] MEDS: LEVOTHYROXINE 0.125 MG TAB (125 MCG) PO SCH (06:32)
[2016-10-13 06:42] VITALS: BP 98/54
--- NOTE | 2016-10-13 08:57 | IPN ---
DATE: 10/12/2016 36-year-old female with history of depression and opiate dependency admitted with significant symptoms of depression and suicidal ideation. The patient could not contract for safety. She was afraid she will end up hurting herself. MEDICATIONS: - Effexor XR 75 mg by mouth every morning - trazodone 100 mg by mouth at bedtime - Librium 25 mg by mouth twice a day - methadone 10 mg by mouth twice a day - folic acid, thiamine and multivitamins as per detox protocol SUBJECTIVE: "I am feeling better". OBJECTIVE: The patient is improving slowly. The patient reports mild symptoms of opiate withdrawal and is currently on a methadone taper. The patient is motivated for treatment. The patient is searching for an inpatient rehabilitation facility that she can be admitted after she is detoxed from our unit and treated for depression. The patient is able to contract for safety and denies suicidal or homicidal ideation during the interview. MENTAL STATUS EXAMINATION: The patient is in [facility]. The patient is laying in bed with limited eye contact. Speech is slow and monotone. Mood is depressed and anxious. Affect is restricted. No evidence of delusions or hallucinations. Short and longterm memory are intact. The patient is fully oriented. Associations are intact. Thinking is logical. Thought content is appropriate. The patient is able to contract for safety and denies suicidal or homicidal ideation during the interview. Insight and judgment is fair. ASSESSMENT: 1. Depression. 2. Suicidal ideation. 3. Opiate dependency. PLAN: 1. Continue with Effexor XR 75 mg by mouth every morning. 2. Continue with trazodone 100 mg by mouth at bedtime, plus 50 mg as needed for insomnia. 3. Continue Librium 25 mg by mouth twice a day. 4. Continue with thiamine, folic acid and multivitamins as per detox protocol. 5. Decrease methadone to 10 mg by mouth at bedtime.
[2016-10-13] MEDS: VENLAFAXINE **XR** 75MG CAPSULE PO SCH (09:38)
[2016-10-13] MEDS: MULTIVITAMINS/MINERALS THERAP 1 TAB PO SCH (09:38)
[2016-10-13] MEDS: NICOTINE 21MG/24HR 1 EA TRANSDERMAL TD SCH (09:38)
[2016-10-13] MEDS: chlordiazePOXIDE 25 MG CAP PO SCH (09:38)
[2016-10-13] MEDS: THIAMINE 100 MG TAB PO SCH (09:38)
[2016-10-13] MEDS: OMEPRAZOLE 20 MG CAP PO SCH (09:38)
[2016-10-13 18:00] VITALS: BP 142/67
--- NOTE | 2016-10-13 20:02 | IPN ---
DATE: 10/13/2016 36-year-old female with history of depression and opiate dependency admitted with significant symptoms of depression and suicidal ideation. The patient could not contract for safety. She was afraid she will end up hurting herself. MEDICATIONS: - Effexor XR 75 mg by mouth every morning - trazodone 100 mg by mouth at bedtime - Librium 25 mg by mouth twice a day - methadone 10 mg by mouth twice a day - folic acid, thiamine and multivitamins as per detox protocol SUBJECTIVE: "I am feeling better." OBJECTIVE: The patient is improving, is motivated for treatment. Has minimal symptoms of opiate withdrawal. Denies side effect from the medication. Is going to get in touch with her sponsor and wants to be transferred to an inpatient rehabilitation program at discharge. MENTAL STATUS EXAMINATION: The patient is dressed in [facility]. The patient is cooperative. Speech is slow and monotone but improving. Mood is depressed and anxious but also improving. Affect is congruent with mood. There is no evidence of delusions or hallucinations. Memory is fiar. The patient is fully oriented. Associations are intact. Thinking is logical. Thought content is appropriate. The patient is able to contract for safety. Denies suicidal or homicidal ideation. Insight and judgment is fair. ASSESSMENT: 1. Depression. 2. Suicidal ideation. 3. Opiate dependency. PLAN: 1. Continue with Effexor XR 75 mg by mouth every morning. 2. Continue with trazodone 100 mg by mouth at bedtime. 3. Decrease Librium to 15 mg by mouth by mouth every morning and 20 mg by mouth at bedtime times two day 4. Decrease methadone to 5 mg by mouth at bedtime.
[2016-10-13] MEDS: FOLIC ACID 1 MG TAB PO SCH (21:00)
[2016-10-13] MEDS: traZODone 50 MG TAB PO PRN (21:14)
[2016-10-13] MEDS: traZODone 100 MG TAB PO SCH (21:15)
[2016-10-13] MEDS: METHADONE 5 MG TAB (S0109) PO SCH (21:15)
[2016-10-14] MEDS: LEVOTHYROXINE 0.125 MG TAB (125 MCG) PO SCH (06:12)
[2016-10-14 06:44] VITALS: BP 115/64
[2016-10-14] MEDS: MULTIVITAMINS/MINERALS THERAP 1 TAB PO SCH (09:00)
[2016-10-14] MEDS: THIAMINE 100 MG TAB PO SCH (09:28)
[2016-10-14] MEDS: OMEPRAZOLE 20 MG CAP PO SCH (09:28)
[2016-10-14] MEDS: NICOTINE 21MG/24HR 1 EA TRANSDERMAL TD SCH (09:28)
[2016-10-14] MEDS: VENLAFAXINE **XR** 75MG CAPSULE PO SCH (09:28)
[2016-10-14 18:00] VITALS: BP 130/70
[2016-10-14] MEDS: traZODone 50 MG TAB PO PRN (21:11)
[2016-10-14] MEDS: FOLIC ACID 1 MG TAB PO SCH (21:11)
[2016-10-14] MEDS: traZODone 100 MG TAB PO SCH (21:12)
[2016-10-14] MEDS: METHADONE 5 MG TAB (S0109) PO SCH (21:12)
[2016-10-15] MEDS: LEVOTHYROXINE 0.125 MG TAB (125 MCG) PO SCH (06:10)
[2016-10-15 07:06] VITALS: BP 166/57
[2016-10-15] MEDS: MULTIVITAMINS/MINERALS THERAP 1 TAB PO SCH (09:00)
[2016-10-15] MEDS: OMEPRAZOLE 20 MG CAP PO SCH (09:25)
[2016-10-15] MEDS: VENLAFAXINE **XR** 75MG CAPSULE PO SCH (09:25)
[2016-10-15] MEDS: THIAMINE 100 MG TAB PO SCH (09:25)
[2016-10-15] MEDS: NICOTINE 21MG/24HR 1 EA TRANSDERMAL TD SCH (09:26)
--- NOTE | 2016-10-15 11:04 | IPN ---
DATE: 10/14/2016 36-year-old female with history of depression and opiate dependency, admitted with significant symptoms of depression and suicidal ideation. Patient could not contract for safety. She was afraid she will end up hurting herself. MEDICATIONS: - Effexor XR 75 mg by mouth every morning - trazodone 100 mg by mouth nightly - Librium taper - methadone 5 mg by mouth nightly - folic acid, thiamine and multivitamins as per detoxification protocol SUBJECTIVE: "I'm feeling much better." OBJECTIVE: Patient is on the methadone and Librium taper. Patient is significantly improved from admission. Tonight will be the last dose of methadone and on 10/16/2016, the last dose of Librium. Patient is motivated to continue her treatment in inpatient setting for rehabilitation. She also has a contention plan in case that the bed does not become available soon. Patient denies side effect from the medication. MENTAL STATUS EXAMINATION: Patient is dressed in [facility]. Patient is clean and well groomed, has fair eye contact. Speech is normal in rate, volume, articulation, is coherent and is spontaneous. Mood is slightly depressed and anxious but improved. Affect is congruent with mood. No delusions or hallucinations. Short-term, long-term memory are fair. Patient is fully oriented. Associations are intact. Thinking is logical. Thought contents are appropriate. Patient is able to contract for safety. Denies suicidal or homicidal ideation during the interview. Insight and judgment is fair. ASSESSMENT: 1. Opiate dependency. 2. Depression. 3. Suicidal ideation. PLAN: 1. Methadone 5 mg by mouth nightly tonight and then discontinue. 2. Librium 15 mg by mouth every morning and 20 mg by mouth nightly times two days and discontinue. 3. Venlafaxine 75 mg by mouth every morning . 4. Trazodone 100 mg by mouth nightly, plus 50 mg as needed for insomnia. 5. Folic acid, thiamine and multivitamins as per detoxification protocol.
[2016-10-15 18:00] VITALS: BP 134/84
[2016-10-15] MEDS: FOLIC ACID 1 MG TAB PO SCH (21:00)
[2016-10-15] MEDS: traZODone 100 MG TAB PO SCH (21:02)
[2016-10-15] MEDS: traZODone 50 MG TAB PO PRN (21:02)
[2016-10-16] MEDS: LEVOTHYROXINE 0.125 MG TAB (125 MCG) PO SCH (06:04)
[2016-10-16 06:53] VITALS: BP 105/53
[2016-10-16] MEDS: MULTIVITAMINS/MINERALS THERAP 1 TAB PO SCH (09:00)
[2016-10-16] MEDS: NICOTINE 21MG/24HR 1 EA TRANSDERMAL TD SCH (09:03)
[2016-10-16] MEDS: VENLAFAXINE **XR** 75MG CAPSULE PO SCH (09:03)
[2016-10-16] MEDS: OMEPRAZOLE 20 MG CAP PO SCH (09:03)
[2016-10-16] MEDS: THIAMINE 100 MG TAB PO SCH (09:03)
[2016-10-16 18:00] VITALS: BP 122/66
[2016-10-16] MEDS: FOLIC ACID 1 MG TAB PO SCH (21:00)
[2016-10-16] MEDS: traZODone 100 MG TAB PO SCH (21:00)
[2016-10-17] MEDS: LEVOTHYROXINE 0.125 MG TAB (125 MCG) PO SCH (06:18)
[2016-10-17 06:24] VITALS: BP 133/75
[2016-10-17] MEDS: MULTIVITAMINS/MINERALS THERAP 1 TAB PO SCH (08:47)
[2016-10-17] MEDS: THIAMINE 100 MG TAB PO SCH (08:48)
[2016-10-17] MEDS: VENLAFAXINE **XR** 75MG CAPSULE PO SCH (08:49)
[2016-10-17] MEDS: NICOTINE 21MG/24HR 1 EA TRANSDERMAL TD SCH (08:49)
[2016-10-17] MEDS: OMEPRAZOLE 20 MG CAP PO SCH (08:49)
[2016-10-17 18:00] VITALS: BP 120/59
[2016-10-17] MEDS: FOLIC ACID 1 MG TAB PO SCH (21:00)
[2016-10-17] MEDS: traZODone 100 MG TAB PO SCH (21:58)
[2016-10-17] MEDS: traZODone 50 MG TAB PO PRN (21:58)
[2016-10-18] MEDS: LEVOTHYROXINE 0.125 MG TAB (125 MCG) PO SCH (06:09)
--- NOTE | 2016-10-18 07:16 | IPN ---
DATE: 10/17/2016 This 36-year-old female with history of depression, opiate dependency admitted with significant symptoms of depression and suicidal ideation. Patient could not contract for safety initially when admitted. Patient stated she was feeling well now. Patient is considering outpatient rehabilitation as there are no inpatient rehabilitation beds. It is our opinion due to her repetitive behavior she probably needs a 6 month program, but presently there is no 30 day program available. Patient states to me she has a sponsor. She has backup at [facility]. She will be going to [facility] outpatient. She will be tested by her medical officer psychiatry every 3 days. It is noted she used heroin 9 days ago. Her present medications: - Effexor, which I have increased to 150 - trazodone 100 mg nightly - thiamine 100 mg every day - Prilosec 20 mg every day - Synthroid 0.125 mg by mouth daily - folic acid 1 mg by mouth night Mental status : appearance is appropriate. Eye contact is good. Speech is normal in volume and articulation. Mood is good. Affect is bright. Denied hallucinations and delusions. Memory both present and remote are intact. She is fully oriented with no loose associations. She denies suicidal or homicidal ideation. Her judgment is good. ASSESSMENT: 1. Opiate dependency. 2. Depression. 3. History of suicidal ideation. Discharge planning to outpatient may be necessary. IRMA
[2016-10-18] MEDS ORDERED: NICO21PAT TD (08:24)
[2016-10-18] MEDS: THIAMINE 100 MG TAB PO SCH (08:38)
[2016-10-18] MEDS: MULTIVITAMINS/MINERALS THERAP 1 TAB PO SCH (08:38)
[2016-10-18] MEDS: NICOTINE 21MG/24HR 1 EA TRANSDERMAL TD SCH (08:38)
[2016-10-18] MEDS: OMEPRAZOLE 20 MG CAP PO SCH (08:40)
[2016-10-18] MEDS ORDERED: VENLAFAXINE **XR** 75MG CAPSULE PO SCH (09:00)
[2016-10-18] MEDS ORDERED: VENL75CA PO (09:37)
[2016-10-18] MEDS ORDERED: TRAZ10TA PO (09:37)
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
== END 2016-10-18 11:00 | disposition home or self-care (01) | DRG 881 ==
LOC: M ED 23:06 → M ED INP 10-10 00:06 → M PSY 10-10 01:04
PROVIDERS: ADMIT Psychiatry & Neurology Psychiatry; ATTEND Psychiatry & Neurology Child & Adolescent Psychiatry
DX: F32.9 Major depressive disorder, single episode, unspecified (principal); F11.23 Opioid dependence with withdrawal; F11.24 Opioid dependence with opioid-induced mood disorder; F43.21 Adjustment disorder with depressed mood; F14.10 Cocaine abuse, uncomplicated; E03.9 Hypothyroidism, unspecified; K21.9 Gastro-esophageal reflux disease without esophagitis; F17.210 Nicotine dependence, cigarettes, uncomplicated; E87.6 Hypokalemia; Z79.899 Other long term (current) drug therapy; Z88.0 Allergy status to penicillin; Z88.2 Allergy status to sulfonamides; Z81.1 Family history of alcohol abuse and dependence; Z81.8 Family history of other mental and behavioral disorders; Z62.810 Personal history of physical and sexual abuse in childhood

== ENCOUNTER 2016-11-08 18:11 | Inpatient (IN) | payer MEDICARE, MEDICAID ==
[~2016-11-08] VITALS: Ht 157.5 cm; Wt 77.9 kg
[~2016-11-08 18:11] MED LIST changes: +NICO21PAT TD; +TRAZ10TA PO; +VENL75CA PO
[2016-11-08] MEDS ORDERED: VENL150C43 PO (20:50)
[2016-11-08] MEDS ORDERED: LEVO125T41 PO (20:50)
[2016-11-08] MEDS ORDERED: OMEP20CA3 PO (20:50)
[2016-11-08] MEDS ORDERED: traZODone 50 MG TAB PO PRN (23:45)
[2016-11-08] MEDS ORDERED: MOM 30ML SUSPENSION UDC PO PRN (23:45)
[2016-11-08] MEDS ORDERED: MAALOX 30 ML SUSP *UDC PO PRN (23:45)
[2016-11-09] MEDS: LEVOTHYROXINE 0.125 MG TAB (125 MCG) PO SCH (05:59)
[2016-11-09] MEDS ORDERED: VENLAFAXINE **XR** 75MG CAPSULE PO SCH (09:00)
--- NOTE | 2016-11-09 09:54 | HPEPDOC ---
Medical History and Physical Date of Admission Nov 08, 2016 at 20:34 History and Physical PCP: Dr Rivas. ATTENDING: Dr. Irwin Roberson HPI: 36yoF admitted to [facility] for Unspecified depressive disorder, being medically examined today. Patient is reporting right hip pain. She states this has been going on for one to 2 years. It occurs with damp weather. There is no radiation of pain down her legs. No weakness in her legs. No numbness or tingling in her legs. No bowel or bladder incontinence. She states it is achy pain. She also reports numbness and tingling in her right hand. 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 She has been wearing a wrist brace to help with her symptoms. She does report reduced associate school psychologist strength with her right hand. She also complains of neck pain which is worse on the right side. Right shoulder pain as well. She denies weakness in the right arm. She does not complain of headaches. She states the shoulder pain and neck pain has been going on for several months as well. Denies any fevers, chills, weakness, fatigue, CP, SOB, cough, palpitations , abdominal pain, N/V/D or changes in bowel or bladder habits. PMHx: Anxiety depression hypothyroid GERD substance use tobacco use H/O Hepatitis C- treated by Dr Pavon completed 03/22. PSHX: Bilateral tubal ligation SOCHX: Resides in: [place] Marital Status: Kids: 3 Employment: unemployed Tobacco use: 1 ppd ETOH: denies Illicit Drugs: heroin, crack, marijuana IV Drug Use: heroin Tattoos done unprofessionally: x1 FAMHX: Mother: Alive, well Father: Alive, well Siblings: Alive, well Children: Alive, well Unexpected deaths due to medical reasons: None. ROS: As noted in HPI, otherwise 11pt ROS of systems reviewed and remarkable only for LMP 10/27/16 PE: GEN: 36yoF, appears stated age. Well-nourished, well developed. No acute distress. Alert and oriented x 3. Pleasant, interactive. HEENT: Normocephalic, atraumatic. Pupils are equal, round, and reactive to light. Extraocular movements are intact. No nystagmus appreciated. Sclera are nonicteric. Conjunctiva without injection. Nose midline. Nasal turbinates without bogginess. EACs both patent BL. TMs both visualized and angelo with good cone of light, no bulging or erythema. No facial asymmetry. Moist mucous membranes. Dentition fair. Pharynx pink and moist, no cobblestoning. Neck supple , trachea midline. No lymphadenopathy or thyromegaly appreciated. CHEST: Regular rate and rhythm, +S1, +S2 LUNGS: Clear to auscultation bilaterally. No wheezes, rales, or rhonchi. Breathing appears symmetric and easy. Patient is speaking in full sentences. No accessory muscle use. ABD: Round, soft, non-tender, non-distended. +Bowel sounds throughout. No rebound or guarding. No costovertebral angle tenderness. EXT: Pulses 2+ bilaterally dorsalis pedis and radial. No lower extremity edema appreciated. Mild tenderness with palpation over the cervical spine and right shoulder area. Normal strength in the right upper extremity, slight reduced associate school psychologist strength in right hand. Tinel and Phalen were positive on the right. SKIN: [place], dry, warm. Capillary refill <2sec. No rashes. NEURO: Alert and oriented x 3. Cranial nerves III-XII are intact. No focal deficits appreciated. EK10/10/16 SINUS BRADYCARDIA 53bpm SEPTAL MYOCARDIAL INFARCTION, OF INDETERMINATE AGE PRWP c/w 08/12/14 RATE SLOWER. A&P: 36yoF admitted to [facility] for Unspecified depressive disorder 1. Psych. Plan per Psychiatry. EKG on file. 2. Nicotine dependence. Patch available. 3. Hypothyroid. Continue Synthroid. TSH is noted to be elevated. Recheck TFT. 4. Follow up with PCP on discharge. 5. Substance use. Per psychiatry. 6. GERD. Continue Prilosec 20mg daily. 7. Leukocytosis. Patient is afebrile. Asymptomatic. Recheck CBC. 8. Right hand paresthesia. Possible carpal tunnel syndrome. Continue with wrist brace from home. Naproxen as needed as she states this works best. Plan for further evaluation as outpatient. Check vitamin B12/folic acid. 9. Chronic neck pain. Check x-ray of the cervical spine. Continue naproxen as needed. 10. Chronic right shoulder pain. Check x-ray of the right shoulder. Continue naproxen as needed. 11. Chronic right hip pain. Check x-ray of the right hip. Continue naproxen as needed. 12. Staff member present throughout exam, Mini Savage. Vital Signs Vital Signs Label Value Date Time Patient Temperature 97.2 degrees F 11/08/162058 Temperature Source Oral 11/08/162058 Pulse 71 11/08/162058 Respiratory Rate 18 bpm 11/08/162058 Blood Pressure Assessment 94/52 (66) 11/08/162058 Location Left Arm Source Automatic Cuff (NIBP) Position Sitting Bedside Pulse Oximetry 97 % 11/08/162058 Blood Pressure Assessment 134/76 (95) 11/08/161811 Location Left Arm Source Automatic Cuff (NIBP) Position Sitting Item Value Date Time Oxygen Delivery Method Room Air 11/08/162058 Laboratory Data Labs 24H Laboratory Tests 2 11/08/16 19:11: Urine Amphetamines Screen NEGATIVE, Urine Benzodiazepines Screen POSITIVEH, Urine Opiates Screen POSITIVEH, Urine Barbiturates Screen NEGATIVE, Urine Cannabinoids Screen NEGATIVE, Urine Cocaine Metabolite Screen NEGATIVE, Urine Methadone Screen NEGATIVE, Urine Phencyclidine Screen NEGATIVE 11/08/16 19:21: Acetaminophen Level < 2.0L, Aspartate Amino Transf (AST/SGOT) 20, Alanine Aminotransferase (ALT/SGPT) 110H, Alkaline Phosphatase 115, Total Bilirubin 0.3 , Direct Bilirubin 0.1, Albumin 3.6, Albumin/Globulin Ratio 1.03, Anion Gap 5L, Calcium Level 9.0, Ethyl Alcohol Level < 0.003, Glomerular Filtration Rate > 60.0, Human Chorionic Gonadotropin, Qual NEGATIVE, Salicylates Level < 1.7L, Thyroid Stimulating Hormone (TSH) 8.800H, Total Protein 7.1 CBC/BMP Laboratory Tests 11/08/16 19:21 Red Blood Count 4.92, Mean Corpuscular Volume 81.1, Mean Corpuscular Hemoglobin 26.4 L, Mean Corpuscular Hemoglobin Concent 32.6, Red Cell Distribution Width 14.6 H Home Medications Scheduled Levothyroxine Sodium (Levoxyl) 125 Mcg Tab 125 MCG PO DAILY Omeprazole (Omeprazole) 20 Mg Cap 20 MG PO DAILY Venlafaxine Hydrochloride (Venlafaxine HCl ER) 150 Mg Cap 150 MG PO DAILY Allergies Coded Allergies: Penicillins (Verified Allergy, Intermediate, HIVES, 10/09/16) Penicillins Cross Reactors (Verified Allergy, Intermediate, HIVES, 11/07/12) Sulfa Drugs (Verified Adverse Reaction, Mild, NAUSEA, 10/09/16) Sulfa Drugs Cross Reactors (Verified Adverse Reaction, Mild, NAUSEA, ) Rachael Weeks Nov 09, 2016 09:54
--- NOTE | 2016-11-09 11:06 | REP ---
RIGHT HIP: Two views of the right hip are performed and demonstrate no fracture, dislocation or intrinsic bone disease. The joint space is normal. IMPRESSION: Negative right hip series. Signed by Daniel Xiong MD 11/09/2016 12:16 P
--- NOTE | 2016-11-09 11:08 | REP ---
CERVICAL SPINE SERIES: Full cervical spine series performed, with seven total views obtained. There is no compression fracture or malalignment. There is no prevertebral soft tissue swelling. There is mild posterior osteophytic ridging at C5-6. Disc spaces are relatively well preserved. There is mild diffuse sclerosis and narrowing at the posterior facet joints. I do not see compelling radiographic evidence of significant neural foraminal narrowing. IMPRESSION: No fracture or dislocation. Mild posterior osteophytes at C5-6 level. Signed by Daniel Xiong MD 11/09/2016 12:16 P
--- NOTE | 2016-11-09 11:09 | REP ---
RIGHT SHOULDER, THREE VIEWS: There is no evidence of an acute fracture, dislocation or intrinsic bone disease. The joint spaces appear essentially unremarkable. IMPRESSION: No fracture or dislocation. Signed by Daniel Xiong MD 11/09/2016 12:16 P
[2016-11-09] MEDS: OMEPRAZOLE 20 MG CAP PO SCH (11:40)
[2016-11-09] MEDS: VENLAFAXINE **XR** 75MG CAPSULE PO SCH (11:40)
[2016-11-09] MEDS: NICOTINE 21MG/24HR 1 EA TRANSDERMAL TD SCH (11:41)
--- NOTE | 2016-11-09 14:10 | MHHPE ---
DATE OF ADMISSION: 11/08/2016 Please refer to my discharge note of 10/18/2016. The patient had been admitted by Dr. Saucedo on 10/10/2016 with a history of depression, anxiety, and opioid dependence. The patient came to the emergency room at that time to be evaluated for depressive symptoms and suicidal thoughts. The patient had been thinking at that time about taking a handful of pills and dying. The patient had relapsed three months prior to this and felt very guilty about it. Course on the unit during that admission: Medications were Effexor, trazodone, Librium twice a day, thiamine, multivitamins. She was on methadone twice a day 10 mg. The patient stated that she was feeling better as her hospitalization continued. She had minimal symptoms of opiate withdrawal. Staff and patient were focused on inpatient rehabilitation. The patient was seen by me on the first time on 10/17/2016. It was hoped that she would enroll and be in a 6-month program but at that time there was no 30-day program available. This admission on 11/08/2016, the patient stated that she was at [facility] rehabilitation. She states that they had called her some time a week or so after she was discharged from here. She states that while she was there she had anxiety and paranoia, which she had no had in a long time. She stated that there was no psychiatrist there. She told her boyfriend, "I am feeling very down." He picked her up and she left against medical advice from that program. When she returned home, she took a small amount of Suboxone. She states, "I want to be on the right medications." She states that while she was at [facility] that she had thoughts that people were talking about her or knew what she was thinking. She states that it occurred on and off. She states that she still has bad anxiety and poor sleep. She states that she felt overwhelmed. She stated that she wanted to get away from people and described that as paranoia. She states that when she got home from [facility] that she had "thoughts of suicide," as mentioned in the last admission. She was going to take pills, as mentioned in her last admission. She states, "Was it because I was in a different place?" MEDICAL HISTORY: Positive for right hip difficulties and numbness. PSYCHIATRIC HISTORY: She was here for 8 days during her last admission. No other psychiatric treatment. LEGAL HISTORY: Positive for being on probation for petty evans. NEUROLOGICAL HISTORY: Negative. ALCOHOL HISTORY: Negative. DRUG USE: Suboxone at home recently. Has a past history of heroin abuse. The patient is stating that she has anxiety and paranoia but does not appear to be responding to any internal stimuli nor obvious other hallucinations, nor suspiciousness. Affect is neutral. Mood is fair. Denies obsessions, compulsions, or phobias. DIAGNOSES: 1. Depression. 2. Anxiety. 3. Opioid dependency. PLAN: Reevaluate her medication and reevaluate her resistance to drug rehabilitation.
[2016-11-09] MEDS: ACETAMINOPHEN TAB 650MG DOSE (2X325MG) PO PRN (17:24)
[2016-11-09 18:06] VITALS: BP 138/88
[2016-11-09] MEDS: QUEtiapine FUMARATE **XR** 200MG TABLET PO SCH (20:33)
[2016-11-10] MEDS: LEVOTHYROXINE 0.125 MG TAB (125 MCG) PO SCH (06:10)
[2016-11-10] MEDS: NICOTINE 21MG/24HR 1 EA TRANSDERMAL TD SCH (08:41)
[2016-11-10] MEDS: OMEPRAZOLE 20 MG CAP PO SCH (08:41)
[2016-11-10] MEDS: VENLAFAXINE **XR** 75MG CAPSULE PO SCH (08:41)
--- NOTE | 2016-11-10 10:31 | IPN ---
DATE: 11/10/2016 Toxicology on Ms. Peck shows positive opiates and positive diazepam. When confronted, the patient admitted to me she snorted a bag of heroin after leaving rehabilitation. The energy control officer reported to us that she called "30 times" yesterday. The patient continues to state, "I get paranoid around people like they are reading my mind". Apparently, on her last admission, she did have a psychotic presentation, but this was following an enormous amount of drugs that she was using. The patient is wanting a dual diagnosis program. The energy control officer states that apparently it is possible police are trying to find the patient. The energy control officer now is aware that the patient is here on our unit. Medications at this time are Seroquel 200 at bedtime and venlafaxine 225 daily. No obvious signs of psychosis are seen, though patient continues to state that she is "paranoid around people". Eye contact is good. No abnormalities of speech. Judgment and insight are poor. Orientation is full in three spheres. No difficulties of recent and remote memory. Attention and concentration are normal. The patient has a full fund of knowledge. Mood is neutral. Affect is neutral. DIAGNOSIS: Opiate abuse and dependence. Major depression. Rehabilitation program may be sought and patient will be discharged when the appropriate program is found. Legal issues may contribute to discharge plan.
[2016-11-10 18:00] VITALS: BP 142/76
[2016-11-10] MEDS: QUEtiapine FUMARATE **XR** 200MG TABLET PO SCH (21:29)
[2016-11-10] MEDS: NAPROXEN 250 MG TAB PO PRN (21:30)
[2016-11-11] MEDS: LEVOTHYROXINE 0.125 MG TAB (125 MCG) PO SCH (06:15)
[2016-11-11] MEDS: NICOTINE 21MG/24HR 1 EA TRANSDERMAL TD SCH (09:53)
[2016-11-11] MEDS: OMEPRAZOLE 20 MG CAP PO SCH (09:54)
[2016-11-11] MEDS: VENLAFAXINE **XR** 75MG CAPSULE PO SCH (09:54)
--- NOTE | 2016-11-11 15:25 | IPN ---
DATE: 11/11/2016 Jane met with myself and with the treatment team. She is in a good mood and is sleeping well with no significant symptoms of paranoia or anxiety noted. Patient has applied to [facility] and had an interview and screening. MENTAL STATUS EXAMINATION: Speech is normal. No disturbance of thought process. No loose associations. No abnormal or psychotic thoughts. Judgment and insight are fair. Orientation in three spheres is present. No disturbances of recent and remote memory. Attention and concentration are good. No disturbances of language. Full fund of knowledge. Mood is good. Affect is bright. IMPRESSION: 1. Major depressive illness. 2. Opiate dependence. PLAN: Will be most likely to discharge on outpatient basis and wait for rehabilitation treatment. We will be hearing from patient's investment officer today or Monday at some point. She is presently on Seroquel 200 at night, Effexor 225 daily, levothyroxine 0.125 mg, and trazodone 100 mg as needed for sleep nightly.
[2016-11-11 18:00] VITALS: BP 128/86
[2016-11-11] MEDS: QUEtiapine FUMARATE **XR** 200MG TABLET PO SCH (21:33)
[2016-11-12] MEDS: LEVOTHYROXINE 0.125 MG TAB (125 MCG) PO SCH (06:14)
[2016-11-12] MEDS: VENLAFAXINE **XR** 75MG CAPSULE PO SCH (10:21)
[2016-11-12] MEDS: NICOTINE 21MG/24HR 1 EA TRANSDERMAL TD SCH (10:22)
[2016-11-12] MEDS: OMEPRAZOLE 20 MG CAP PO SCH (10:22)
[2016-11-12] MEDS: NAPROXEN 250 MG TAB PO PRN (12:06)
[2016-11-12] MEDS: ACETAMINOPHEN TAB 650MG DOSE (2X325MG) PO PRN (17:13)
[2016-11-12 18:00] VITALS: BP 136/88
[2016-11-12] MEDS: QUEtiapine FUMARATE **XR** 200MG TABLET PO SCH (21:33)
[2016-11-13] MEDS: LEVOTHYROXINE 0.125 MG TAB (125 MCG) PO SCH (06:22)
--- NOTE | 2016-11-13 08:56 | IPN ---
DATE: 11/12/2016 The patient today states "I am doing wonderful." She has no complaints. I am not eliciting any mood symptoms. She is denying any self harm thoughts. MENTAL STATUS EXAMINATION: This patient is alert and oriented times three. Eye contact is fair. Psychomotor activity is decreased. There is no formal thought disorder noted. She says that her mood is "wonderful." Affect is constricted but appropriate to her mood. She is not psychotic. She is not suicidal or homicidal. Concentration is fair. Memory is fairly intact. Insight and judgment fair. DIAGNOSES: 1. Major depressive disorder. 2. Opioid use disorder. PLAN: The patient seems to be improving. We will continue to monitor her for continued elevation and stabilization in her mood. We will monitor her for continued resolution of suicidal ideation. We will titrate her medications as indicated.
[2016-11-13] MEDS: NICOTINE 21MG/24HR 1 EA TRANSDERMAL TD SCH (09:40)
[2016-11-13] MEDS: OMEPRAZOLE 20 MG CAP PO SCH (09:40)
[2016-11-13] MEDS: VENLAFAXINE **XR** 75MG CAPSULE PO SCH (09:40)
[2016-11-13] MEDS: NAPROXEN 250 MG TAB PO PRN (15:22)
[2016-11-13 18:00] VITALS: BP 128/79
[2016-11-13] MEDS: QUEtiapine FUMARATE **XR** 200MG TABLET PO SCH (21:26)
[2016-11-14] MEDS: LEVOTHYROXINE 0.125 MG TAB (125 MCG) PO SCH (05:52)
[2016-11-14 06:34] VITALS: BP 115/65
[2016-11-14] MEDS ORDERED: QUET20XRTB PO (08:02)
[2016-11-14] MEDS ORDERED: VENL75CA PO ×2 (08:02)
[2016-11-14] MEDS ORDERED: NICO21PAT TD (08:57)
[2016-11-14] MEDS ORDERED: VENLAFAXINE **XR** 75MG CAPSULE PO SCH ×2 (09:00)
--- NOTE | 2016-11-14 15:56 | MHDS ---
DATE OF ADMISSION: 11/08/2016 DATE OF DISCHARGE: 11/14/2016 Progress note 11/12/2016, Dr. Ayala saw the patient and the patient stated "I am doing wonderful." I met with the patient this morning, she did not demonstrate any significant disturbances of mood. She stated her "paranoid" thoughts were improved. She did feel her Seroquel dose at a higher dose did not work as well for her initial insomnia. I explained to her, however, that since she complained of paranoia, I had given her an increased dose of Seroquel. She had no other complaints. Her mood was good. She was alert and oriented times three. Her eye contact was good. Psychomotor activity was normal. There was no thought disorder noted. Stated her mood was wonderful. Affect was appropriate to mood. There were no demonstrations of psychotic thoughts. She was neither suicidal nor homicidal. Her concentration was fair. Her memory is intact. Insight and judgment fair. The patient was admitted to Dr. Saucedo on 10/10/2016, with a history of depression, anxiety, and opioid dependence. At that particular time she was wanting to be evaluated for depressive symptoms and suicidal thoughts. At this particular time, she stated the same symptoms, which resulted in this admission. Both admissions she stated she had been "thinking of taking a handful of pills and dying." Patient had relapsed on previous admission and also on this admission. Patient was seen by me during last admission on 10/17/2016, to try to enroll the patient in a 6 month program of rehabilitation. She was admitted to [facility] program but walked out against medical advice. At this time, she said she experienced anxiety and paranoia while at [facility] and was concerned that there was "no psychiatrist there." She had told her boyfriend she was feeling very down. The patient did not tell me, however, until later that she also, prior to admission, used heroin. She had stated she had only used Suboxone. She changed her story, however, as this admission continued. MEDICAL HISTORY: Positive for right hip difficulties and numbness. PSYCHIATRIC HISTORY: Previous psychiatric admission of 8 days here during her last admission as noted in our previous notes. LEGAL HISTORY: Positive for being on probation for healy lorraineny. Patient may still be having legal difficulties and may have broken probation again this time. NEUROLOGIC HISTORY: Negative. ALCOHOL HISTORY: Negative. DRUG USE: Recent use of heroin prior to this admission. LABORATORY EXAMINATION: Showed a low MCH and a high RDW. Serum chemistries demonstrated a mildly low AST. Toxicology screen was positive for opiates and benzodiazepines. Patient states she did not use benzodiazepines unless they were mixed with her opiates. MEDICAL EXAMINATION: Described reduced supervisor drying and winding strength and neck pain and concluded that the patient had nicotine dependence, hypothyroidism, gastroesophageal reflux disease (GERD), asymptomatic leukocytosis, right hand paresthesia with possible carpal tunnel syndrome, right shoulder pain, chronic neck pain, and chronic right hip pain. DISCHARGE MENTAL STATUS: Patient's speech was normal in speed, rate, and rhythm. No disturbance of thought processes. No complaints of abnormal or psychotic thoughts. No complaints of paranoia. Judgment and insight poor. Patient was fully oriented. Recent and remote memory intact. Attention and concentration intact. Full fund of knowledge. Mood was good. Affect was bright. Patient will be discharged on her present medications of nicotine patch, Seroquel 200 nightly, and venlafaxine 225 mg. DISCHARGE DIAGNOSES: 1. Major depression. 2. Opioid dependence.
== END 2016-11-14 13:05 | disposition home or self-care (01) | DRG 881 ==
LOC: M ED 19:48 → M ED INP 20:34 → M PSY 21:06
PROVIDERS: ADMIT Psychiatry & Neurology Psychiatry; ATTEND Psychiatry & Neurology Child & Adolescent Psychiatry
DX: F32.9 Major depressive disorder, single episode, unspecified (principal); F11.20 Opioid dependence, uncomplicated; E03.9 Hypothyroidism, unspecified; K21.9 Gastro-esophageal reflux disease without esophagitis; F17.200 Nicotine dependence, unspecified, uncomplicated; I25.2 Old myocardial infarction; Z88.0 Allergy status to penicillin; Z88.2 Allergy status to sulfonamides; Z79.899 Other long term (current) drug therapy; D72.829 Elevated white blood cell count, unspecified; M54.2 Cervicalgia; M25.511 Pain in right shoulder; M25.551 Pain in right hip

== ENCOUNTER 2017-01-01 05:03 | Emergency (ER) | payer MEDICARE, MEDICAID ==
[~2017-01-01] VITALS: Ht 157.5 cm; Wt 74.4 kg
[~2017-01-01 05:03] MED LIST changes: +OMEP20CA3 PO; +QUET20XRTB PO; +VENL150C43 PO
[2017-01-01 05:09] VITALS: BP 120/68
[2017-01-01] MEDS ORDERED: TRAZ100T4 PO (05:37)
[2017-01-01] MEDS ORDERED: ACETAMINOPHEN TAB 650MG DOSE (2X325MG) PO ONE (06:15)
--- NOTE | 2017-01-01 08:04 | REP ---
Clinical: Trauma. Technique: AP and lateral views of the left foot. Findings: No acute fracture dislocation. Skeletal structures, joint spaces, and surrounding soft tissues appear normal for age. No subcutaneous emphysema or radiodense foreign body. Impression: Normal left foot radiographs. No acute fracture dislocation. Signed by Tomás Berry MD 01/01/2017 07:57 A
== END 2017-01-01 06:07 | disposition home or self-care (01) ==
LOC: M ED 05:53
DX: M79.672 Pain in left foot (principal); F41.9 Anxiety disorder, unspecified; Z79.899 Other long term (current) drug therapy; Z88.0 Allergy status to penicillin; Z88.2 Allergy status to sulfonamides

== ENCOUNTER → 2017-03-08 | Outpatient (CLI) | payer OTHER ==
[~2017-03-08] MED LIST changes: -NAPR500T2 PO; +NAPR500T3 PO; +TRAZ-136 PO; -VENL75CA PO; +VENL75CA2 PO
[2017-03-08 14:15] LABS: FREE T4 1.24 NG/DL (0.76-1.46)
== END ==
LOC: M WUC 08:44
PROVIDERS: ATTEND Physician Assistant Medical
DX: E03.9 Hypothyroidism, unspecified (principal)

== ENCOUNTER 2017-12-03 21:35 | Inpatient (IN) | payer MEDICARE, MEDICAID, OTHER ==
[2017-12-03] MEDS: NICOTINE 21MG/24HR 1 EA TRANSDERMAL TD (22:50)
[2017-12-03 22:55] LABS: HEMATOCRIT 36.7 % (36.0-47.0); HEMOGLOBIN 12.2 g/dl (12.0-15.5); MEAN CORPUSCULAR HEMOGLOBIN 28.1 pg (27.0-33.0); MEAN CORPUSCULAR HGB CONC 33.2 g/dl (32.0-36.5); MEAN CORPUSCULAR VOLUME 84.6 fl (80.0-96.0); PLATELET COUNT, AUTOMATED 362 10^3/uL (150-450); RED BLOOD COUNT 4.34 10^6/uL (4.00-5.40); RED CELL DISTRIBUTION WIDTH 13.2 % (11.5-14.5); WHITE BLOOD COUNT 7.6 10^3/uL (4.0-10.0)
[2017-12-03 23:08] LABS: CONTROL LINE HCG INT CTR LINE PRESENT; HCG, SERUM QUALITATIVE NEGATIVE (NEGATIVE)
[2017-12-03 23:20] LABS: AMPHETAMINES LEVEL URINE NEGATIVE (NEGATIVE); BARBITURATES URINE NEGATIVE (NEGATIVE); BENZODIAZEPINES URINE NEGATIVE (NEGATIVE); CANNABINOIDS URINE POSITIVE (NEGATIVE); COCAINE METABOLITE URINE POSITIVE (NEGATIVE); METHADONE URINE NEGATIVE (NEGATIVE); OPIATES URINE POSITIVE (NEGATIVE); PHENCYCLIDINE URINE NEGATIVE (NEGATIVE)
[2017-12-03 23:23] LABS: ACETAMINOPHEN LEVEL < 2.0 UG/ML (10.0-30.0); ALBUMIN 3.7 GM/DL (3.2-5.2); ALBUMIN/GLOBULIN RATIO 1.06 (1.00-1.93); ALKALINE PHOSPHATASE 59 U/L (45-117); ALT/SGPT 21 U/L (12-78); ANION GAP 6 MEQ/L (8-16); AST/SGOT 19 U/L (7-37); BILIRUBIN,DIRECT < 0.1 MG/DL (0.0-0.2); BILIRUBIN,TOTAL 0.2 MG/DL (0.2-1.0); BLOOD UREA NITROGEN 7 MG/DL (7-18); CARBON DIOXIDE LEVEL 29 MEQ/L (21-32); CHLORIDE LEVEL 105 MEQ/L (98-107); CREATININE FOR GFR 0.83 MG/DL (0.55-1.30); ETHYL ALCOHOL (ETHANOL) < 0.003 % (0.000-0.010); GLOMERULAR FILTRATION RATE > 60.0 (>60); GLUCOSE, FASTING 83 MG/DL (70-100); POTASSIUM SERUM 3.9 MEQ/L (3.5-5.1); SALICYLATE LEVEL < 1.7 MG/DL (5.0-30.0); SODIUM LEVEL 140 MEQ/L (136-145); TOTAL PROTEIN 7.2 GM/DL (6.4-8.2)
[2017-12-04] MEDS ORDERED: MAALOX 30 ML SUSP *UDC PO
[2017-12-04] MEDS ORDERED: MOM 30ML SUSPENSION UDC PO
[2017-12-04] MEDS: LEVOTHYROXINE 150MCG TABLET (0.15MG) PO (06:19)
[2017-12-04] MEDS: OMEPRAZOLE 20 MG CAP PO (09:11)
[2017-12-04] MEDS: SERTRALINE HCL 25 MG TABLET PO (15:48)
[2017-12-04] MEDS: METHADONE 10 MG TAB (S0109) PO ×2 (15:48→20:38)
[2017-12-04] MEDS: NICOTINE POLACRILEX 2 MG GUM PO ×2 (18:19→20:39)
[2017-12-04] MEDS: traZODone 50 MG TAB PO (20:38)
[2017-12-05] MEDS: LEVOTHYROXINE 150MCG TABLET (0.15MG) PO (06:07)
[2017-12-05] MEDS: OMEPRAZOLE 20 MG CAP PO (09:30)
[2017-12-05] MEDS: SERTRALINE HCL 25 MG TABLET PO (09:30)
[2017-12-05] MEDS: METHADONE 10 MG TAB (S0109) PO ×3 (09:31→20:08)
[2017-12-05] MEDS: NICOTINE POLACRILEX 2 MG GUM PO ×2 (16:09→20:08)
[2017-12-05] MEDS: traZODone 50 MG TAB PO (21:19)
[2017-12-06] MEDS: LEVOTHYROXINE 150MCG TABLET (0.15MG) PO (05:29)
[2017-12-06] MEDS: METHADONE 10 MG TAB (S0109) PO (09:21)
[2017-12-06] MEDS: SERTRALINE HCL 25 MG TABLET PO (09:21)
[2017-12-06] MEDS: OMEPRAZOLE 20 MG CAP PO (09:22)
[2017-12-06] MEDS: NICOTINE POLACRILEX 2 MG GUM PO ×3 (13:26→18:52)
[2017-12-06] MEDS: ACETAMINOPHEN TAB 650MG DOSE (2X325MG) PO (14:12)
[2017-12-06] MEDS: traZODone 50 MG TAB PO (21:07)
[2017-12-06] MEDS: NAPROXEN 250 MG TAB PO (21:08)
[2017-12-07] MEDS: LEVOTHYROXINE 150MCG TABLET (0.15MG) PO (06:08)
[2017-12-07] MEDS: OMEPRAZOLE 20 MG CAP PO (08:34)
[2017-12-07] MEDS: SERTRALINE HCL 25 MG TABLET PO (08:34)
[2017-12-07] MEDS: METHADONE 10 MG TAB (S0109) PO (08:34)
[2017-12-07] MEDS: GABAPENTIN 300 MG CAP PO ×3 (09:54→21:41)
[2017-12-07] MEDS: NICOTINE POLACRILEX 2 MG GUM PO ×2 (14:12→18:22)
[2017-12-07] MEDS: CLINDAMYCIN 150 MG CAP PO ×2 (15:15→21:41)
[2017-12-07] MEDS: traZODone 50 MG TAB PO (21:41)
[2017-12-08] MEDS: CLINDAMYCIN 150 MG CAP PO (06:02)
[2017-12-08] MEDS: LEVOTHYROXINE 150MCG TABLET (0.15MG) PO (06:02)
[2017-12-08] MEDS ORDERED: METHADONE 10 MG TAB (S0109) PO (08:00)
[2017-12-08] MEDS: GABAPENTIN 300 MG CAP PO (09:05)
[2017-12-08] MEDS: SERTRALINE HCL 50 MG TAB PO (09:05)
[2017-12-08] MEDS: OMEPRAZOLE 20 MG CAP PO (09:05)
[2017-12-08] MEDS: NICOTINE POLACRILEX 2 MG GUM PO (09:06)
== END 2017-12-08 11:50 | disposition home or self-care (01) | DRG 882 ==
LOC: M ED INP 23:53 → M PSY 12-04 01:43 → M ED 21:35
DX: F43.10 Post-traumatic stress disorder, unspecified (principal); R45.851 Suicidal ideations; F14.10 Cocaine abuse, uncomplicated; E03.9 Hypothyroidism, unspecified; F12.10 Cannabis abuse, uncomplicated; K21.9 Gastro-esophageal reflux disease without esophagitis; F17.210 Nicotine dependence, cigarettes, uncomplicated; F60.3 Borderline personality disorder; F11.10 Opioid abuse, uncomplicated; F19.14 Other psychoactive substance abuse with psychoactive substance-induced mood disorder; Z79.899 Other long term (current) drug therapy; Z88.0 Allergy status to penicillin; Z88.2 Allergy status to sulfonamides; Z98.51 Tubal ligation status

== ENCOUNTER 2018-04-03 22:51 | Inpatient (IN) | payer MEDICARE, MEDICAID ==
[2018-04-04 00:28] LABS: AMPHETAMINES LEVEL URINE NEGATIVE (NEGATIVE); BARBITURATES URINE NEGATIVE (NEGATIVE); BENZODIAZEPINES URINE NEGATIVE (NEGATIVE); CANNABINOIDS URINE NEGATIVE (NEGATIVE); COCAINE METABOLITE URINE POSITIVE (NEGATIVE); METHADONE URINE NEGATIVE (NEGATIVE); OPIATES URINE POSITIVE (NEGATIVE); PHENCYCLIDINE URINE NEGATIVE (NEGATIVE)
[2018-04-04 00:34] LABS: CONTROL LINE HCG INT CTR LINE PRESENT; HCG, SERUM QUALITATIVE NEGATIVE (NEGATIVE)
[2018-04-04 00:41] LABS: HEMATOCRIT 40.4 % (36.0-47.0); HEMOGLOBIN 12.9 g/dl (12.0-15.5); MEAN CORPUSCULAR HGB CONC 31.9 g/dl (32.0-36.5); MEAN CORPUSCULAR VOLUME 81.5 fl (80.0-96.0); PLATELET COUNT, AUTOMATED 321 10^3/uL (150-450); RED BLOOD COUNT 4.96 10^6/uL (4.00-5.40); RED CELL DISTRIBUTION WIDTH 17.3 % (11.5-14.5); WHITE BLOOD COUNT 9.9 10^3/uL (4.0-10.0)
[2018-04-04 00:48] LABS: ALBUMIN 3.6 GM/DL (3.2-5.2); ALKALINE PHOSPHATASE 125 U/L (45-117); ALT/SGPT 105 U/L (12-78); ANION GAP 12 MEQ/L (8-16); AST/SGOT 32 U/L (7-37); BILIRUBIN,DIRECT 0.1 MG/DL (0.0-0.2); BILIRUBIN,TOTAL 0.3 MG/DL (0.2-1.0); BLOOD UREA NITROGEN 10 MG/DL (7-18); CALCIUM LEVEL 8.8 MG/DL (8.5-10.1); CARBON DIOXIDE LEVEL 26 MEQ/L (21-32); CHLORIDE LEVEL 105 MEQ/L (98-107); CREATININE FOR GFR 0.91 MG/DL (0.55-1.30); GLOMERULAR FILTRATION RATE > 60.0 (>60); GLUCOSE, FASTING 110 MG/DL (70-100); POTASSIUM SERUM 3.7 MEQ/L (3.5-5.1); SALICYLATE LEVEL < 1.7 MG/DL (5.0-30.0); SODIUM LEVEL 143 MEQ/L (136-145); TOTAL PROTEIN 7.2 GM/DL (6.4-8.2)
[2018-04-04 00:50] LABS: ACETAMINOPHEN LEVEL < 2.0 UG/ML (10.0-30.0)
[2018-04-04] MEDS: NICOTINE 21MG/24HR 1 EA TRANSDERMAL TD ×2 (02:00→18:16)
[2018-04-04] MEDS ORDERED: ACETAMINOPHEN TAB 650MG DOSE (2X325MG) PO (02:15)
[2018-04-04] MEDS ORDERED: MAALOX 30 ML SUSP *UDC PO (02:15)
[2018-04-04] MEDS ORDERED: MOM 30ML SUSPENSION UDC PO (02:15)
[2018-04-04] MEDS: OMEPRAZOLE 20 MG CAP PO (10:09)
[2018-04-04] MEDS: LEVOTHYROXINE 125MCG TABLET (0.125MG) PO (10:09)
[2018-04-04 10:45] LABS: HEPATITIS B SURFACE ANTIGEN NEGATIVE (NEGATIVE)
[2018-04-04 11:12] LABS: HEPATITIS B CORE ANTIBODY IGM NEGATIVE (NEGATIVE)
[2018-04-04 11:14] LABS: HEPATITIS A ANTIBODY IGM NEGATIVE (NEGATIVE)
[2018-04-04 11:35] LABS: HEPATITIS C VIRUS ABY INDEX > 11.0 INDEX (<0.8)
[2018-04-04] MEDS: SERTRALINE HCL 50 MG TAB PO (12:33)
[2018-04-04] MEDS: METHADONE 10 MG TAB (S0109) PO (12:37)
[2018-04-04] MEDS: cloNIDine 0.1 MG TAB PO (12:38)
[2018-04-04] MEDS: QUEtiapine FUMARATE 50 MG TAB PO (19:57)
[2018-04-04] MEDS: NICOTINE POLACRILEX 2 MG GUM PO (19:58)
[2018-04-05] MEDS: LEVOTHYROXINE 125MCG TABLET (0.125MG) PO (06:04)
[2018-04-05 07:53] LABS: ALBUMIN 3.2 GM/DL (3.2-5.2); ALBUMIN/GLOBULIN RATIO 0.94 (1.00-1.93); ALKALINE PHOSPHATASE 105 U/L (45-117); ALT/SGPT 69 U/L (12-78); ANION GAP 9 MEQ/L (8-16); AST/SGOT 23 U/L (7-37); BILIRUBIN,TOTAL 0.3 MG/DL (0.2-1.0); BLOOD UREA NITROGEN 7 MG/DL (7-18); CALCIUM LEVEL 8.5 MG/DL (8.5-10.1); CARBON DIOXIDE LEVEL 27 MEQ/L (21-32); CHLORIDE LEVEL 108 MEQ/L (98-107); CREATININE FOR GFR 0.67 MG/DL (0.55-1.30); GLOMERULAR FILTRATION RATE > 60.0 (>60); GLUCOSE, FASTING 95 MG/DL (70-100); POTASSIUM SERUM 4.1 MEQ/L (3.5-5.1); SODIUM LEVEL 144 MEQ/L (136-145); TOTAL PROTEIN 6.6 GM/DL (6.4-8.2)
[2018-04-05] MEDS: NICOTINE 21MG/24HR 1 EA TRANSDERMAL TD (10:56)
[2018-04-05] MEDS: OMEPRAZOLE 20 MG CAP PO (10:56)
[2018-04-05] MEDS: SERTRALINE HCL 50 MG TAB PO (10:56)
[2018-04-05] MEDS: NICOTINE POLACRILEX 2 MG GUM PO ×2 (10:57→15:23)
[2018-04-05] MEDS: METHADONE 10 MG TAB (S0109) PO (12:31)
[2018-04-05] MEDS: hydrOXYzine 50 MG TAB PO ×2 (17:46→20:48)
[2018-04-05] MEDS: traZODone 50 MG TAB PO (20:48)
[2018-04-05] MEDS: QUEtiapine FUMARATE 100 MG TAB PO (20:48)
[2018-04-06] MEDS: LEVOTHYROXINE 125MCG TABLET (0.125MG) PO (06:02)
[2018-04-06] MEDS: NICOTINE 21MG/24HR 1 EA TRANSDERMAL TD (08:18)
[2018-04-06] MEDS: OMEPRAZOLE 20 MG CAP PO (08:18)
[2018-04-06] MEDS: SERTRALINE HCL 50 MG TAB PO (08:18)
[2018-04-06] MEDS: METHADONE 5 MG TAB (S0109) PO (11:49)
[2018-04-06] MEDS: hydrOXYzine 50 MG TAB PO ×2 (11:49→21:02)
[2018-04-06] MEDS: NICOTINE POLACRILEX 2 MG GUM PO (13:02)
[2018-04-06] MEDS: QUEtiapine FUMARATE 100 MG TAB PO (21:02)
[2018-04-06] MEDS: traZODone 50 MG TAB PO (21:02)
[2018-04-07 00:07] LABS: HCV RNA NAA QUALITATIVE Positive (Negative)
[2018-04-07] MEDS: LEVOTHYROXINE 125MCG TABLET (0.125MG) PO (06:15)
[2018-04-07] MEDS: METHADONE 5 MG TAB (S0109) PO (11:46)
[2018-04-07] MEDS: SERTRALINE HCL 50 MG TAB PO (11:46)
[2018-04-07] MEDS: OMEPRAZOLE 20 MG CAP PO (11:46)
[2018-04-07] MEDS: NICOTINE POLACRILEX 2 MG GUM PO (11:46)
[2018-04-07] MEDS: NICOTINE 21MG/24HR 1 EA TRANSDERMAL TD (11:46)
[2018-04-07] MEDS: hydrOXYzine 50 MG TAB PO ×2 (17:06→20:59)
[2018-04-07] MEDS: traZODone 50 MG TAB PO (21:00)
[2018-04-07] MEDS: QUEtiapine FUMARATE 100 MG TAB PO (21:00)
[2018-04-08] MEDS: LEVOTHYROXINE 125MCG TABLET (0.125MG) PO (06:10)
[2018-04-08] MEDS: SERTRALINE HCL 50 MG TAB PO (09:27)
[2018-04-08] MEDS: NICOTINE 21MG/24HR 1 EA TRANSDERMAL TD (09:27)
[2018-04-08] MEDS: OMEPRAZOLE 20 MG CAP PO (09:27)
[2018-04-08] MEDS: METHADONE 5 MG TAB (S0109) PO (11:46)
[2018-04-08] MEDS: QUEtiapine FUMARATE 50 MG TAB PO (14:47)
[2018-04-08] MEDS: NICOTINE POLACRILEX 2 MG GUM PO ×2 (14:49→19:48)
[2018-04-08] MEDS: hydrOXYzine 50 MG TAB PO (19:47)
[2018-04-08] MEDS: traZODone 50 MG TAB PO (19:47)
[2018-04-08] MEDS: QUEtiapine FUMARATE 100 MG TAB PO (21:16)
[2018-04-09] MEDS: LEVOTHYROXINE 125MCG TABLET (0.125MG) PO (06:09)
[2018-04-09] MEDS: NICOTINE 21MG/24HR 1 EA TRANSDERMAL TD (09:20)
[2018-04-09] MEDS: SERTRALINE HCL 50 MG TAB PO (09:20)
[2018-04-09] MEDS: OMEPRAZOLE 20 MG CAP PO (09:20)
[2018-04-09] MEDS: METHADONE 5 MG TAB (S0109) PO (12:12)
[2018-04-09] MEDS: NICOTINE POLACRILEX 2 MG GUM PO (19:06)
[2018-04-09] MEDS: hydrOXYzine 50 MG TAB PO (19:06)
[2018-04-09] MEDS: QUEtiapine FUMARATE 100 MG TAB PO (21:16)
[2018-04-10] MEDS: LEVOTHYROXINE 125MCG TABLET (0.125MG) PO (06:08)
[2018-04-10] MEDS: OMEPRAZOLE 20 MG CAP PO (08:43)
[2018-04-10] MEDS: METHADONE 5 MG TAB (S0109) PO (08:44)
[2018-04-10] MEDS: SERTRALINE HCL 50 MG TAB PO (08:44)
[2018-04-10] MEDS: NICOTINE 21MG/24HR 1 EA TRANSDERMAL TD (08:44)
[2018-04-10] MEDS: hydrOXYzine 50 MG TAB PO (11:42)
== END 2018-04-10 12:30 | disposition home or self-care (01) | DRG 885 ==
LOC: M ED 22:51 → M ED INP 04-04 02:30 → M PSY 04-04 04:25
DX: F31.60 Bipolar disorder, current episode mixed, unspecified (principal); R45.851 Suicidal ideations; F14.90 Cocaine use, unspecified, uncomplicated; F11.90 Opioid use, unspecified, uncomplicated; F41.9 Anxiety disorder, unspecified; E03.9 Hypothyroidism, unspecified; K21.9 Gastro-esophageal reflux disease without esophagitis; F17.200 Nicotine dependence, unspecified, uncomplicated; B18.2 Chronic viral hepatitis C; Z88.0 Allergy status to penicillin; Z88.2 Allergy status to sulfonamides

== ENCOUNTER 2018-05-02 23:54 | Emergency (ER) | payer MEDICARE, MEDICAID ==
[2018-05-03] MEDS: methylPREDNISolone INJ 125 MG/2 ML VIAL (J2930) IM (01:05)
[2018-05-03] MEDS: IPRATROPIUM 0.5MG/ALBUTEROL 2.5MG INH SOL UD 3ML (DUONEB)(J7620) NEB (01:31)
== END 2018-05-03 01:42 | disposition home or self-care (01) ==
LOC: M ED 23:54
DX: J40 Bronchitis, not specified as acute or chronic (principal); F32.9 Major depressive disorder, single episode, unspecified; F17.200 Nicotine dependence, unspecified, uncomplicated; Z88.0 Allergy status to penicillin; Z88.2 Allergy status to sulfonamides; Z79.899 Other long term (current) drug therapy
CPT/HCPCS: J2930

== ENCOUNTER 2018-05-04 23:44 | Emergency (ER) | payer MEDICARE, MEDICAID | END 2018-05-05 01:10 | disposition left against medical advice (07) | LOC: M ED 23:44 | DX: Z53.21 Procedure and treatment not carried out due to patient leaving prior to being seen by health care provider (principal) ==

== ENCOUNTER 2018-05-06 18:44 | Emergency (ER) | payer MEDICARE, MEDICAID ==
[2018-05-06] MEDS: AZITHROMYCIN 250 MG TAB PO (19:06)
== END 2018-05-06 19:07 | disposition home or self-care (01) ==
LOC: M ED 18:44
DX: J20.9 Acute bronchitis, unspecified (principal); Z91.138 Patient's unintentional underdosing of medication regimen for other reason; E78.5 Hyperlipidemia, unspecified; F31.9 Bipolar disorder, unspecified; K21.9 Gastro-esophageal reflux disease without esophagitis; E03.9 Hypothyroidism, unspecified; Z88.0 Allergy status to penicillin; Z88.2 Allergy status to sulfonamides; Z79.899 Other long term (current) drug therapy; Z79.2 Long term (current) use of antibiotics; Z79.52 Long term (current) use of systemic steroids
CPT/HCPCS: 99282

== ENCOUNTER 2018-05-12 18:25 | Emergency (ER) | payer MEDICARE, MEDICAID ==
[2018-05-12] MEDS: BENZONATATE 100 MG CAP PO (19:36)
[2018-05-12] MEDS: IBUPROFEN 600 MG TAB PO (19:36)
== END 2018-05-12 19:45 | disposition home or self-care (01) ==
LOC: M ED 18:25
DX: J06.9 Acute upper respiratory infection, unspecified (principal); B34.9 Viral infection, unspecified; E78.5 Hyperlipidemia, unspecified; Z79.899 Other long term (current) drug therapy; Z88.0 Allergy status to penicillin; Z88.2 Allergy status to sulfonamides; F17.210 Nicotine dependence, cigarettes, uncomplicated
CPT/HCPCS: 87880

== ENCOUNTER 2018-05-14 23:31 | Emergency (ER) | payer MEDICARE, MEDICAID ==
[2018-05-15] MEDS: FLEET ENEMA PR (00:56)
[2018-05-15] MEDS ORDERED: NORCO 5/325MG TABLET (BULK FOR ED) PO (01:00)
[2018-05-15] MEDS: PROMETHAZINE 25 MG TAB PO (01:02)
[2018-05-15] MEDS: IBUPROFEN 600 MG TAB PO (01:02)
== END 2018-05-15 01:15 | disposition home or self-care (01) ==
LOC: M ED 23:31
DX: K64.4 Residual hemorrhoidal skin tags (principal); K59.00 Constipation, unspecified; R11.0 Nausea; E78.5 Hyperlipidemia, unspecified; F17.200 Nicotine dependence, unspecified, uncomplicated; Z88.0 Allergy status to penicillin; Z88.2 Allergy status to sulfonamides; Z79.899 Other long term (current) drug therapy; Z79.52 Long term (current) use of systemic steroids
CPT/HCPCS: 99283

== ENCOUNTER → 2018-06-12 | Outpatient (CLI) | payer MEDICARE, MEDICAID ==
[2018-06-12 17:26] LABS: HEMATOCRIT 34.9 % (36.0-47.0); HEMOGLOBIN 11.2 g/dl (12.0-15.5); MEAN CORPUSCULAR HEMOGLOBIN 26.2 pg (27.0-33.0); MEAN CORPUSCULAR HGB CONC 32.1 g/dl (32.0-36.5); MEAN CORPUSCULAR VOLUME 81.5 fl (80.0-96.0); PLATELET COUNT, AUTOMATED 313 10^3/uL (150-450); RED BLOOD COUNT 4.28 10^6/uL (4.00-5.40); RED CELL DISTRIBUTION WIDTH 15.5 % (11.5-14.5); WHITE BLOOD COUNT 10.2 10^3/uL (4.0-10.0)
[2018-06-12 17:58] LABS: ALBUMIN 3.7 GM/DL (3.2-5.2); ALBUMIN/GLOBULIN RATIO 1.12 (1.00-1.93); ALKALINE PHOSPHATASE 72 U/L (45-117); ALT/SGPT 30 U/L (12-78); ANION GAP 7 MEQ/L (8-16); AST/SGOT 24 U/L (7-37); BILIRUBIN,TOTAL 0.2 MG/DL (0.2-1.0); BLOOD UREA NITROGEN 13 MG/DL (7-18); CALCIUM LEVEL 9.1 MG/DL (8.5-10.1); CARBON DIOXIDE LEVEL 31 MEQ/L (21-32); CHLORIDE LEVEL 101 MEQ/L (98-107); CREATININE FOR GFR 0.61 MG/DL (0.55-1.30); GLOMERULAR FILTRATION RATE > 60.0 (>60); GLUCOSE, FASTING 81 MG/DL (70-100); POTASSIUM SERUM 4.2 MEQ/L (3.5-5.1); SODIUM LEVEL 139 MEQ/L (136-145)
[2018-06-12 19:07] LABS: CHLAMYDIA DNA AMPLIFICATION NEGATIVE (NEGATIVE); GC DNA AMPLIFICATION NEGATIVE (NEGATIVE)
[2018-06-12 22:04] LABS: CONTROL LINE HCG INT CTR LINE PRESENT; HCG, SERUM QUALITATIVE NEGATIVE (NEGATIVE)
[2018-06-13 10:08] LABS: HEPATITIS B SURFACE ANTIGEN NEGATIVE (NEGATIVE)
[2018-06-13 10:37] LABS: HIV 1&2 SCREEN CENTAUR NEGATIVE (NEGATIVE)
[2018-06-13 11:09] LABS: HEPATITIS C VIRUS ABY INDEX > 11.0 INDEX (<0.8)
[2018-06-16 00:06] LABS: HCV RNA NAA QUALITATIVE Negative (Negative)
== END ==
LOC: M LAB 15:48
DX: F11.20 Opioid dependence, uncomplicated (principal)
CPT/HCPCS: 93005

== ENCOUNTER 2018-08-24 14:59 | Emergency (ER) | payer MEDICARE, MEDICAID ==
[~2018-08-24] VITALS: Ht 154.9 cm; Wt 77.3 kg
[~2018-08-24 14:59] MED LIST changes: +ANUS2.5C2 TOP; +CLEO150C PO; +FLUTISP; +GABA-843 PO; +IBUP-1022 PO; +LEVO150T7; +LEVO150T7 PO; +LEVO25TA5 PO; +MAGICMW SS; +MIRA3350 PO; +NAPR-885 PO; +NAPR250T82 PO; -NAPR500T3 PO; +NICO2GUM62 PO; +OMEP40CA2 PO; +PRED20TA PO; +PROM25TA12 GT; +QUET1TAB8 PO; -QUET20XRTB PO; +SERO200T43 PO; +SERT50TA PO; +TESS100C PO; -TRAZ-136 PO; +TRAZ-163 PO; +TRAZO50TA PO; +ZITH250T PO; +ZITHTAB PO
[2018-08-24] MEDS ORDERED: ZOLO100T PO (16:00)
[2018-08-24] MEDS ORDERED: SUBO2MIS SL (16:07)
--- NOTE | 2018-08-24 17:02 | REP ---
Chest two views HISTORY: Cough Comparison: 05/03/2018 The lungs are clear. The heart is normal in size. The pulmonary vasculature is normal in appearance. The bony structure is intact. IMPRESSION: No acute disease. Electronically Signed by Sergio Boone MD 08/24/2018 04:53 P
[2018-08-24 17:13] VITALS: BP 124/72
[2018-08-24] MEDS ORDERED: MAGICMW MT (17:13)
== END 2018-08-24 17:22 | disposition home or self-care (01) ==
LOC: M ED 14:59
DX: J02.9 Acute pharyngitis, unspecified (principal); K21.9 Gastro-esophageal reflux disease without esophagitis; E03.9 Hypothyroidism, unspecified; F33.9 Major depressive disorder, recurrent, unspecified; F41.9 Anxiety disorder, unspecified; Z79.899 Other long term (current) drug therapy; Z79.891 Long term (current) use of opiate analgesic; Z88.0 Allergy status to penicillin; Z88.2 Allergy status to sulfonamides; F17.210 Nicotine dependence, cigarettes, uncomplicated

== ENCOUNTER 2018-09-12 13:13 | Emergency (ER) | payer MEDICARE, MEDICAID ==
[~2018-09-12] VITALS: Ht 157.5 cm; Wt 76.4 kg
[~2018-09-12 13:13] MED LIST changes: +MAGICMW MT; +SUBO2MIS SL; +ZOLO100T PO
[2018-09-12] MEDS ORDERED: ATOR1TAB21 PO (13:25)
[2018-09-12] MEDS ORDERED: SUBO8MIS SL (13:25)
[2018-09-12] MEDS ORDERED: CLINDAMYCIN (13:25)
[2018-09-12 15:14] LABS: HEMATOCRIT 31.9 % (36.0-47.0); HEMOGLOBIN 10.7 g/dl (12.0-15.5); MEAN CORPUSCULAR HEMOGLOBIN 26.9 pg (27.0-33.0); MEAN CORPUSCULAR HGB CONC 33.5 g/dl (32.0-36.5); MEAN CORPUSCULAR VOLUME 80.2 fl (80.0-96.0); PLATELET COUNT, AUTOMATED 439 10^3/uL (150-450); RED BLOOD COUNT 3.98 10^6/uL (4.00-5.40)
--- NOTE | 2018-09-12 15:17 | REP ---
ULTRASOUND RIGHT FOREARM SOFT TISSUES: Real-time sonographic evaluation of the right anterior forearm soft tissues performed at the site of a reported palpable abnormality. There is a heterogeneous hypoechoic area in the soft tissues at the site of the swelling. It measures 2.1 x 0.9 x 1.4 cm. Given the patient's history I suspect this represents focal phlegmonous change and possible early abscess formation. Electronically Signed by Daniel Xiong MD 09/12/2018 05:23 P
[2018-09-12 15:38] LABS: ERYTHROCYTE SEDIMENTATION RATE 29 mm/hr (0-20)
[2018-09-12 15:40] LABS: BLOOD UREA NITROGEN 8 MG/DL (7-18); C REACTIVE PROTEIN QUANTITATIV 1.64 MG/DL (0.00-0.30); CALCIUM LEVEL 8.4 MG/DL (8.5-10.1); CARBON DIOXIDE LEVEL 25 MEQ/L (21-32); CHLORIDE LEVEL 107 MEQ/L (98-107); CREATININE FOR GFR 0.62 MG/DL (0.55-1.30); GLOMERULAR FILTRATION RATE > 60.0 (>60); GLUCOSE, FASTING 105 MG/DL (70-100); SODIUM LEVEL 138 MEQ/L (136-145)
[2018-09-12] MEDS ORDERED: CEFTAROLINE FOSAMIL 600 MG in D5W MINI-BAG PLUS 50 ML IV ONE (16:15)
[2018-09-12 16:35] LABS: AMPHETAMINES LEVEL URINE POSITIVE (NEGATIVE); BARBITURATES URINE NEGATIVE (NEGATIVE); BENZODIAZEPINES URINE NEGATIVE (NEGATIVE); CANNABINOIDS URINE NEGATIVE (NEGATIVE); COCAINE METABOLITE URINE NEGATIVE (NEGATIVE); METHADONE URINE NEGATIVE (NEGATIVE); OPIATES URINE POSITIVE (NEGATIVE); PHENCYCLIDINE URINE NEGATIVE (NEGATIVE)
[2018-09-12] MEDS ORDERED: CLIN150C14 PO (16:43)
[2018-09-12] MEDS ORDERED: SYNT175T2 PO (16:43)
[2018-09-12] MEDS ORDERED: ATOM40CA PO (16:43)
[2018-09-12] MEDS ORDERED: GABA-843 PO (16:43)
[2018-09-12] MEDS ORDERED: KEFL500C17 PO (17:52)
[2018-09-12 18:02] VITALS: BP 132/74
== END 2018-09-12 18:03 | disposition home or self-care (01) ==
LOC: M ED 13:13
DX: L03.113 Cellulitis of right upper limb (principal); K21.9 Gastro-esophageal reflux disease without esophagitis; E03.9 Hypothyroidism, unspecified; E78.00 Pure hypercholesterolemia, unspecified; F17.210 Nicotine dependence, cigarettes, uncomplicated; F41.9 Anxiety disorder, unspecified; F32.9 Major depressive disorder, single episode, unspecified; F19.10 Other psychoactive substance abuse, uncomplicated
CPT/HCPCS: 76882; 80048; 80307; 83605; 85027; 85652; 86140; 87040; 87077; 96365; 99283; J0712

== ENCOUNTER 2018-12-15 00:58 | Emergency (ER) | payer MEDICARE, MEDICAID ==
[~2018-12-15] VITALS: Ht 157.5 cm; Wt 67.3 kg
[~2018-12-15 00:58] MED LIST changes: +ATOM40CA PO; +ATOR1TAB21 PO; +CLIN150C14 PO; +CLINDAMYCIN; +KEFL500C17 PO; +SERT-141 PO; -SERT50TA PO; +SUBO8MIS SL; +SYNT175T2 PO
[2018-12-15 00:59] VITALS: BP 160/84
--- NOTE | 2018-12-15 08:15 | REP ---
Left forearm: Two views. History: Possible foreign body. Findings: AP and lateral views of the left forearm demonstrate diffuse soft tissue swelling. There is an area of more pronounced swelling along the volar aspect of the proximal forearm. No opaque foreign body is seen. No fracture is noted. No soft tissue gas is seen. Impression: No opaque foreign body. Diffuse forearm swelling. Electronically Signed by Chi Dotson MD 12/15/2018 08:06 A
== END 2018-12-15 06:00 | disposition left against medical advice (07) ==
LOC: M ED 00:58
DX: L02.414 Cutaneous abscess of left upper limb (principal); I80.8 Phlebitis and thrombophlebitis of other sites; F19.10 Other psychoactive substance abuse, uncomplicated; F41.9 Anxiety disorder, unspecified; F32.9 Major depressive disorder, single episode, unspecified; E03.9 Hypothyroidism, unspecified; F17.200 Nicotine dependence, unspecified, uncomplicated; Z88.0 Allergy status to penicillin; Z88.2 Allergy status to sulfonamides; Z79.899 Other long term (current) drug therapy

== ENCOUNTER 2019-01-01 01:52 | Emergency (ER) | payer MEDICARE, MEDICAID ==
[~2019-01-01] VITALS: Ht 157.5 cm; Wt 71.4 kg
[~2019-01-01 01:52] MED LIST changes: +TRAZ1TAB10 PO; -TRAZO50TA PO
[2019-01-01] MEDS ORDERED: HYDR1CRE30 TOP (05:56)
[2019-01-01] MEDS ORDERED: diphenhydrAMINE INJ 50MG/ML VIAL (J1200) IV ONE (06:00)
[2019-01-01] MEDS ORDERED: diphenhydrAMINE 25 MG CAP PO ONE (06:15)
[2019-01-01 06:19] VITALS: BP 130/69
== END 2019-01-01 06:20 | disposition home or self-care (01) ==
LOC: M ED 01:52
DX: S40.861A Insect bite (nonvenomous) of right upper arm, initial encounter (principal); S40.862A Insect bite (nonvenomous) of left upper arm, initial encounter; S80.861A Insect bite (nonvenomous), right lower leg, initial encounter; S80.862A Insect bite (nonvenomous), left lower leg, initial encounter; W57.XXXA Bitten or stung by nonvenomous insect and other nonvenomous arthropods, initial encounter; Y92.89 Other specified places as the place of occurrence of the external cause; Z79.890 Hormone replacement therapy; Z88.0 Allergy status to penicillin; Z88.1 Allergy status to other antibiotic agents; Z88.2 Allergy status to sulfonamides; F17.210 Nicotine dependence, cigarettes, uncomplicated

== ENCOUNTER → 2021-10-20 | Outpatient (CLI) | payer MEDICARE, MEDICAID ==
[~2021-10-20] MED LIST changes: -ATOM40CA PO; +ATOM40CA16 PO; -CLIN150C14 PO; +CLIN150C17 PO; +GABA-282 PO; -GABA-843 PO; +HYDR1CRE30 TOP; +NICO-13 PO; -NICO2GUM62 PO; +OMEP1CAP73 PO; -OMEP20CA3 PO; -OMEP40CA2 PO; +OMEP40CA4 PO; +QUET100T2 PO; -QUET1TAB8 PO; -TRAZ-163 PO; +TRAZ-257 PO; -TRAZ10TA PO; +TRAZ1TAB12 PO
[2021-10-20 12:54] LABS: HEMOGLOBIN 13.7 g/dl (12.0-15.5); MEAN CORPUSCULAR HEMOGLOBIN 28.1 pg (27.0-33.0); MEAN CORPUSCULAR HGB CONC 32.6 g/dl (32.0-36.5); MEAN CORPUSCULAR VOLUME 86.2 fl (80.0-96.0); PLATELET COUNT, AUTOMATED 373 10^3/uL (150-450); RED BLOOD COUNT 4.87 10^6/uL (4.00-5.40); WHITE BLOOD COUNT 7.8 10^3/uL (4.0-10.0)
[2021-10-20 13:14] LABS: HCG, SERUM QUALITATIVE NEGATIVE (NEGATIVE)
[2021-10-20 13:39] LABS: ALBUMIN 4.4 GM/DL (3.2-5.2); ALT/SGPT 31 U/L (12-78); BILIRUBIN,TOTAL 0.2 MG/DL (0.2-1.0); BLOOD UREA NITROGEN 13 MG/DL (7-18); CALCIUM LEVEL 9.7 MG/DL (8.5-10.1); CARBON DIOXIDE LEVEL 34 MEQ/L (21-32); CHLORIDE LEVEL 97 MEQ/L (98-107); CREATININE FOR GFR 0.82 MG/DL (0.55-1.30); GLOMERULAR FILTRATION RATE > 60.0 (>58); GLUCOSE, FASTING 79 MG/DL (70-100); POTASSIUM SERUM 3.8 MEQ/L (3.5-5.1); SODIUM LEVEL 138 MEQ/L (136-145); TOTAL PROTEIN 7.7 GM/DL (6.4-8.2)
[2021-10-20 13:41] LABS: HEPATITIS B SURFACE ANTIGEN NEGATIVE (NEGATIVE)
[2021-10-20 14:10] LABS: HIV 1&2 SCREEN CENTAUR NEGATIVE (NEGATIVE)
[2021-10-20 14:20] LABS: HEPATITIS C VIRUS ABY INDEX > 11.0 INDEX (<0.8)
[2021-10-20 14:51] LABS: GC DNA AMPLIFICATION NEGATIVE (NEGATIVE)
== END ==
LOC: M LAB 10:55
PROVIDERS: ATTEND Family Medicine
DX: F11.20 Opioid dependence, uncomplicated (principal); Z79.899 Other long term (current) drug therapy

== ENCOUNTER → 2021-11-05 | Outpatient (CLI) | payer MEDICARE, MEDICAID | LOC: M PLARAD 12:46 | DX: M54.31 Sciatica, right side (principal) ==

== ENCOUNTER 2023-01-30 11:21 | Emergency (ER) | payer MEDICARE, MEDICAID ==
[~2023-01-30] VITALS: Ht 157.5 cm; Wt 100.5 kg
[~2023-01-30 11:21] MED LIST changes: +FLUT50SP17; -FLUTISP
[2023-01-30 11:22] VITALS: BP 145/88; TEMP 97.8; O2SAT 97
[2023-01-30 12:32] LABS: BASO % 0.3 % (0.0-1.0); EOS # 0.2 10^3/uL (0.0-0.5); EOS % 2.5 % (0.0-3.0); HEMATOCRIT 38.5 % (36.0-47.0); HEMOGLOBIN 12.3 g/dl (12.0-15.5); LYMPH # 1.8 10^3/uL (1.5-5.0); LYMPH % 24.3 % (24.0-44.0); MEAN CORPUSCULAR HEMOGLOBIN 26.2 pg (27.0-33.0); MEAN CORPUSCULAR HGB CONC 31.9 g/dl (32.0-36.5); MEAN CORPUSCULAR VOLUME 82.1 fl (80.0-96.0); MONO # 0.4 10^3/uL (0.0-0.8); MONO % 5.7 % (2.0-8.0); NEUTROPHILS # 5.1 10^3/uL (1.5-8.5); NEUTROPHILS % 66.9 % (36.0-66.0); PLATELET COUNT, AUTOMATED 324 10^3/uL (150-450); RED BLOOD COUNT 4.69 10^6/uL (4.00-5.40); WHITE BLOOD COUNT 7.5 10^3/uL (4.0-10.0)
[2023-01-30 12:56] LABS: CK-MB VALUE MASS 5.6 NG/ML (<3.6)
[2023-01-30 12:57] LABS: ALBUMIN 3.7 G/DL (3.2-5.2); ALKALINE PHOSPHATASE 92 U/L (46-116); ALT/SGPT 22 U/L (7.0-40); AST/SGOT 21 U/L (<34); BILIRUBIN,DIRECT < 0.1 MG/DL (<0.4); BILIRUBIN,TOTAL 0.3 MG/DL (0.3-1.2); BLOOD UREA NITROGEN 9 MG/DL (9-23); CALCIUM LEVEL 8.7 MG/DL (8.5-10.1); CARBON DIOXIDE LEVEL 27 MMOL/L (20-31); CHLORIDE LEVEL 105 MMOL/L (98-107); CREATININE FOR GFR 0.58 MG/DL (0.55-1.30); GLOMERULAR FILTRATION RATE > 60.0 (>58); GLUCOSE, FASTING 109 MG/DL (60-100); SODIUM LEVEL 138 MMOL/L (136-145); TOTAL PROTEIN 6.5 G/DL (5.7-8.2)
[2023-01-30 13:07] LABS: CPK CREATINE PHOSPHOKINASE 300 U/L (34-145); MB/CK RELATIVE INDEX 1.86 (< OR =4)
[2023-01-30] MEDS ORDERED: METHADONE 10MG TAB PO ONE (14:35)
[2023-01-30] MEDS ORDERED: ISOVUE-370 76% 100ML VIAL As Ordered ONE (14:43)
== END 2023-01-30 15:47 | disposition left against medical advice (07) ==
LOC: M ED 11:21
DX: R06.02 Shortness of breath (principal); I10 Essential (primary) hypertension; E78.5 Hyperlipidemia, unspecified; E03.9 Hypothyroidism, unspecified; F41.9 Anxiety disorder, unspecified; F32.A Depression, unspecified; F17.200 Nicotine dependence, unspecified, uncomplicated; F19.10 Other psychoactive substance abuse, uncomplicated; Z88.0 Allergy status to penicillin; Z88.2 Allergy status to sulfonamides; Z79.899 Other long term (current) drug therapy

== ENCOUNTER → 2023-03-30 | Outpatient (CLI) | payer MEDICARE, MEDICAID ==
[2023-03-30 15:40] LABS: HEMATOCRIT 38.4 % (36.0-47.0); HEMOGLOBIN 11.9 g/dl (12.0-15.5); MEAN CORPUSCULAR HEMOGLOBIN 25.6 pg (27.0-33.0); MEAN CORPUSCULAR VOLUME 82.6 fl (80.0-96.0); PLATELET COUNT, AUTOMATED 322 10^3/uL (150-450); RED BLOOD COUNT 4.65 10^6/uL (4.00-5.40); WHITE BLOOD COUNT 7.3 10^3/uL (4.0-10.0)
[2023-03-30 16:17] LABS: ALBUMIN 3.5 G/DL (3.2-5.2); ALKALINE PHOSPHATASE 95 U/L (46-116); ALT/SGPT 17 U/L (7.0-40); AST/SGOT 10 U/L (<34); BILIRUBIN,TOTAL 0.2 MG/DL (0.3-1.2); BLOOD UREA NITROGEN 10 MG/DL (9-23); CALCIUM LEVEL 9.2 MG/DL (8.5-10.1); CARBON DIOXIDE LEVEL 30 MMOL/L (20-31); CHLORIDE LEVEL 106 MMOL/L (98-107); CREATININE FOR GFR 0.64 MG/DL (0.55-1.30); GLOMERULAR FILTRATION RATE > 60.0 (>58); GLUCOSE, FASTING 70 MG/DL (60-100); POTASSIUM SERUM 4.4 MMOL/L (3.5-5.1); SODIUM LEVEL 141 MMOL/L (136-145); TOTAL PROTEIN 6.6 G/DL (5.7-8.2)
[2023-03-30 16:20] LABS: HCG, SERUM QUALITATIVE NEGATIVE (NEGATIVE)
[2023-03-30 16:38] LABS: HIV 1&2 SCREEN NEGATIVE (NEGATIVE)
[2023-03-30 16:52] LABS: HEPATITIS C VIRUS ABY INDEX > 11.00 INDEX (<0.8)
[2023-03-30 17:04] LABS: GC DNA AMPLIFICATION NEGATIVE (NEGATIVE)
== END ==
LOC: M LAB 14:59
PROVIDERS: ATTEND Family Medicine
DX: F11.20 Opioid dependence, uncomplicated (principal)

== ENCOUNTER 2023-12-17 20:54 | Emergency (ER) | payer MEDICARE, MEDICAID ==
[~2023-12-17] VITALS: Ht 157.5 cm; Wt 81.5 kg
[~2023-12-17 20:54] MED LIST changes: -FLUT50SP17; +FLUTISP
[2023-12-17] MEDS: ACETAMINOPHEN 325 MG TAB PO ONE (22:03)
[2023-12-17 22:47] VITALS: BP 143/87; TEMP 98.8; O2SAT 97
== END 2023-12-17 22:50 | disposition home or self-care (01) ==
LOC: M ED 20:54
DX: M25.552 Pain in left hip (principal); F17.210 Nicotine dependence, cigarettes, uncomplicated; F11.10 Opioid abuse, uncomplicated; Z88.0 Allergy status to penicillin; Z88.2 Allergy status to sulfonamides; Z79.899 Other long term (current) drug therapy

== ENCOUNTER 2024-03-03 01:52 | Emergency (ER) | payer MEDICARE, MEDICAID ==
[~2024-03-03] VITALS: Ht 157.5 cm; Wt 76.3 kg
[2024-03-03] MEDS ORDERED: METH10CO3 PO (02:33)
[2024-03-03] MEDS ORDERED: DOXY-323 PO (06:31)
[2024-03-03] MEDS: DOXYCYCLINE HYCLATE 100MG TABLET PO ONE (06:47)
[2024-03-03 06:52] VITALS: BP 142/71; TEMP 98.7; O2SAT 98
== END 2024-03-03 06:50 | disposition home or self-care (01) ==
LOC: M ED 01:52
DX: L03.114 Cellulitis of left upper limb (principal); E03.9 Hypothyroidism, unspecified; K21.9 Gastro-esophageal reflux disease without esophagitis; E78.5 Hyperlipidemia, unspecified; F17.200 Nicotine dependence, unspecified, uncomplicated; Z88.0 Allergy status to penicillin; Z88.2 Allergy status to sulfonamides; F19.10 Other psychoactive substance abuse, uncomplicated

== ENCOUNTER 2024-04-25 18:26 | Emergency (ER) | payer MEDICAID, MEDICARE ==
[~2024-04-25] VITALS: Ht 157.5 cm; Wt 74.5 kg
[~2024-04-25 18:26] MED LIST changes: +DOXY-323 PO; +METH10CO3 PO
[2024-04-25 19:47] VITALS: BP 168/94; TEMP 97.4; O2SAT 97
[2024-04-26] MEDS ORDERED: MAGICMW SSP (09:46)
== END 2024-04-25 21:04 | disposition left against medical advice (07) ==
LOC: M ED 18:26 → EDBD 18:26 → M ED 21:04
DX: Z53.21 Procedure and treatment not carried out due to patient leaving prior to being seen by health care provider (principal)

== ENCOUNTER 2024-04-26 04:40 | Emergency (ER) | payer MEDICARE ==
[~2024-04-26] VITALS: Ht 157.5 cm; Wt 74.5 kg
[2024-04-26 07:39] VITALS: BP 162/78
[2024-04-26] MEDS ORDERED: MAGICMW SSP (09:46)
[2024-04-26 10:08] VITALS: TEMP 96; O2SAT 98
== END 2024-04-26 10:10 | disposition home or self-care (01) ==
LOC: EDBD 04:40 → M ED 04:40
DX: S06.0X0A Concussion without loss of consciousness, initial encounter (principal); S33.5XXA Sprain of ligaments of lumbar spine, initial encounter; Y92.9 Unspecified place or not applicable; Y93.9 Activity, unspecified; Y99.9 Unspecified external cause status; W01.0XXA Fall on same level from slipping, tripping and stumbling without subsequent striking against object, initial encounter; K21.9 Gastro-esophageal reflux disease without esophagitis; F11.10 Opioid abuse, uncomplicated; Z88.0 Allergy status to penicillin; Z88.2 Allergy status to sulfonamides; Z79.2 Long term (current) use of antibiotics; Z79.899 Other long term (current) drug therapy

== ENCOUNTER 2024-05-04 20:58 | Emergency (ER) | payer MEDICARE ==
[~2024-05-04] VITALS: Ht 157.5 cm; Wt 69.7 kg
[~2024-05-04 20:58] MED LIST changes: +MAGICMW SSP
[2024-05-04 21:21] VITALS: BP 150/96; TEMP 99; O2SAT 98
[2024-05-04] MEDS ORDERED: BENA2CRE3 EXT (21:59)
== END 2024-05-04 22:13 | disposition home or self-care (01) ==
LOC: M ED 20:58
DX: L25.8 Unspecified contact dermatitis due to other agents (principal); Z20.7 Contact with and (suspected) exposure to pediculosis, acariasis and other infestations; Z88.0 Allergy status to penicillin; Z88.2 Allergy status to sulfonamides; F17.210 Nicotine dependence, cigarettes, uncomplicated; Z79.2 Long term (current) use of antibiotics; Z79.899 Other long term (current) drug therapy

== ENCOUNTER 2024-05-11 07:49 | Emergency (ER) | payer MEDICARE ==
[~2024-05-11] VITALS: Ht 154.9 cm; Wt 69.1 kg
[~2024-05-11 07:49] MED LIST changes: +BENA2CRE3 EXT; -DOXY-323 PO; +DOXY-441 PO; +GABA-1172 PO; -GABA-282 PO
[2024-05-11 09:09] LABS: BASO % 0.3 % (0.0-1.0); EOS # 0.3 10^3/uL (0.0-0.5); EOS % 3.8 % (0.0-3.0); HEMATOCRIT 39.1 % (36.0-47.0); HEMOGLOBIN 12.8 g/dl (12.0-15.5); LYMPH # 1.8 10^3/uL (1.5-5.0); LYMPH % 24.1 % (24.0-44.0); MEAN CORPUSCULAR HEMOGLOBIN 27.4 pg (27.0-33.0); MEAN CORPUSCULAR HGB CONC 32.7 g/dl (32.0-36.5); MEAN CORPUSCULAR VOLUME 83.7 fl (80.0-96.0); MONO # 0.4 10^3/uL (0.0-0.8); MONO % 5.6 % (2.0-8.0); NEUTROPHILS # 4.8 10^3/uL (1.5-8.5); NEUTROPHILS % 65.9 % (36.0-66.0); PLATELET COUNT, AUTOMATED 384 10^3/uL (150-450); RED BLOOD COUNT 4.67 10^6/uL (4.00-5.40); WHITE BLOOD COUNT 7.3 10^3/uL (4.0-10.0)
[2024-05-11] MEDS ORDERED: VENLAFAXINE 37.5 MG TAB PO ONE (09:10)
[2024-05-11] MEDS ORDERED: PILL CUTTER 1 EACH XX ONE (09:15)
[2024-05-11] MEDS ORDERED: CLONI1TA PO ×3 (09:29→11:38)
[2024-05-11] MEDS ORDERED: LEVO200T4 (09:29)
[2024-05-11] MEDS ORDERED: NAPR-855 PO ×3 (09:29→11:38)
[2024-05-11] MEDS ORDERED: LOSA25TA13 PO ×2 (09:29→10:05)
[2024-05-11] MEDS ORDERED: VENL75CA47 PO ×2 (09:29→10:05)
[2024-05-11] MEDS ORDERED: ESOM1CAP20 PO (09:29)
[2024-05-11] MEDS ORDERED: LOSA50TA28 PO ×2 (09:29→10:05)
[2024-05-11] MEDS ORDERED: HYDR-3363 PO ×2 (09:29→10:05)
[2024-05-11 09:35] LABS: ALKALINE PHOSPHATASE 81 U/L (46-116); ALT/SGPT 27 U/L (7.0-40); AST/SGOT 30 U/L (<34); BILIRUBIN,TOTAL 0.2 MG/DL (0.3-1.2); BLOOD UREA NITROGEN 9 MG/DL (9-23); CALCIUM LEVEL 9.6 MG/DL (8.5-10.1); CARBON DIOXIDE LEVEL 26 MMOL/L (20-31); CHLORIDE LEVEL 104 MMOL/L (98-107); CREATININE FOR GFR 0.64 MG/DL (0.55-1.30); GLOMERULAR FILTRATION RATE > 60.0 (>58); GLUCOSE, FASTING 86 MG/DL (60-100); SODIUM LEVEL 136 MMOL/L (136-145); TOTAL PROTEIN 7.7 G/DL (5.7-8.2)
[2024-05-11 09:38] LABS: THYROID STIMULATING HORMONE 36.974 uIU/ML (0.55-4.78)
[2024-05-11] MEDS: LEVOTHYROXINE 100MCG TABLET (0.1MG) PO ONE (09:56)
[2024-05-11 09:59] VITALS: BP 174/94
[2024-05-11] MEDS: LOSARTAN 50MG TABLET PO ONE (09:59)
[2024-05-11] MEDS: VENLAFAXINE **XR** 75MG CAPSULE PO ONE (09:59)
[2024-05-11 10:02] VITALS: BP 174/94; TEMP 98.1; O2SAT 97
[2024-05-11] MEDS ORDERED: ESOM20CA2 PO (10:05)
[2024-05-11] MEDS ORDERED: LEVO200T4 PO (10:07)
[2024-05-11] MEDS ORDERED: SYNT100T PO (11:38)
[2024-05-11] MEDS ORDERED: HOME MED LIST COMPLETE! XX SCH (11:40)
== END 2024-05-11 10:34 | disposition home or self-care (01) ==
LOC: M ED 07:49
DX: Z76.0 Encounter for issue of repeat prescription (principal); I10 Essential (primary) hypertension; K21.9 Gastro-esophageal reflux disease without esophagitis; E03.9 Hypothyroidism, unspecified; E78.00 Pure hypercholesterolemia, unspecified; Z88.0 Allergy status to penicillin; Z88.2 Allergy status to sulfonamides; Z79.899 Other long term (current) drug therapy

== ENCOUNTER 2024-06-06 04:34 | Emergency (ER) | payer MEDICARE ==
[~2024-06-06] VITALS: Ht 157.5 cm; Wt 65.0 kg
[~2024-06-06 04:34] MED LIST changes: +ESOM1CAP20 PO; +ESOM20CA2 PO; +HYDR-3363 PO; +LEVO200T4; +LEVO200T4 PO; +LOSA25TA13 PO; +LOSA50TA28 PO; +NAPR-855 PO; +SYNT100T PO; +VENL75CA47 PO
[2024-06-06 08:14] LABS: BARBITURATES URINE NEGATIVE (NEGATIVE); COCAINE METABOLITE URINE NEGATIVE (NEGATIVE); OPIATES URINE NEGATIVE (NEGATIVE); PHENCYCLIDINE URINE NEGATIVE (NEGATIVE)
[2024-06-06 08:15] LABS: BENZODIAZEPINES URINE NEGATIVE (NEGATIVE); CANNABINOIDS URINE NEGATIVE (NEGATIVE)
[2024-06-06 08:18] LABS: AMPHETAMINES LEVEL URINE POSITIVE (NEGATIVE); METHADONE URINE POSITIVE (NEGATIVE)
[2024-06-06 10:07] VITALS: BP 137/92; TEMP 97; O2SAT 96
== END 2024-06-06 10:13 | disposition home or self-care (01) ==
LOC: M ED 04:34
DX: S80.01XA Contusion of right knee, initial encounter (principal); Y92.9 Unspecified place or not applicable; Y93.9 Activity, unspecified; Y99.9 Unspecified external cause status; F17.210 Nicotine dependence, cigarettes, uncomplicated; F15.10 Other stimulant abuse, uncomplicated; Z88.0 Allergy status to penicillin; Z88.2 Allergy status to sulfonamides; Z79.899 Other long term (current) drug therapy

== ENCOUNTER 2024-06-11 05:50 | Emergency (ER) | payer MEDICARE ==
[~2024-06-11] VITALS: Ht 157.5 cm; Wt 68.6 kg
[2024-06-11] MEDS ORDERED: CEPH500C PO (06:49)
[2024-06-11 07:22] VITALS: BP 152/76; TEMP 98; O2SAT 98
== END 2024-06-11 07:43 | disposition home or self-care (01) ==
LOC: M ED 05:50
DX: L98.8 Other specified disorders of the skin and subcutaneous tissue (principal); F19.10 Other psychoactive substance abuse, uncomplicated; F31.9 Bipolar disorder, unspecified; E03.9 Hypothyroidism, unspecified; E78.5 Hyperlipidemia, unspecified; F17.200 Nicotine dependence, unspecified, uncomplicated; Z88.0 Allergy status to penicillin; Z88.2 Allergy status to sulfonamides; Z79.2 Long term (current) use of antibiotics; Z79.811 Long term (current) use of aromatase inhibitors; Z79.899 Other long term (current) drug therapy

== ENCOUNTER → 2024-07-24 | Outpatient (REF) | payer MEDICARE ==
[~2024-07-24] MED LIST changes: +CEPH500C PO
[2024-07-24 14:15] LABS: TOTAL 25(OH) VITAMIN D 21.7 NG/ML (20.0-100.0)
[2024-07-24 14:16] LABS: ALBUMIN 3.6 G/DL (3.2-5.2); ALKALINE PHOSPHATASE 78 U/L (35-104); ALT/SGPT 34 U/L (7.0-40); AST/SGOT 39 U/L (<34); BILIRUBIN,TOTAL 0.2 MG/DL (0.3-1.2); BLOOD UREA NITROGEN 19 MG/DL (9-23); CALCIUM LEVEL 9.6 MG/DL (8.5-10.1); CARBON DIOXIDE LEVEL 31 MMOL/L (20-31); CHLORIDE LEVEL 102 MMOL/L (98-107); CHOLESTEROL LEVEL 254 MG/DL (<200); CREATININE FOR GFR 0.58 MG/DL (0.55-1.30); GLOMERULAR FILTRATION RATE > 60.0 (>58); GLUCOSE, FASTING 87 MG/DL (60-100); HDL CHOLESTEROL 74.6 MG/DL (>40); LDL CHOLESTEROL 160.8 MG/DL (<100); NON-HDL-C 179.4 MG/DL; POTASSIUM SERUM 4.2 MMOL/L (3.5-5.1); SODIUM LEVEL 141 MMOL/L (136-145); THYROID STIMULATING HORMONE 46.475 uIU/ML (0.55-4.78); TOTAL PROTEIN 7.2 G/DL (5.7-8.2); TRIGLYCERIDES LEVEL 93 MG/DL (<150)
[2024-07-24 14:40] LABS: HEMOGLOBIN A1c 5.3 % (4.0-6.0)
[2024-07-24 15:34] LABS: CREATININE, URINE 29.8 MG/DL; MAU/CREAT RATIO 117.4 MCG/MG (0.0-30.0)
== END ==
LOC: M LAB REF 13:21
PROVIDERS: ATTEND Physician Assistant
DX: I10 Essential (primary) hypertension (principal); F19.10 Other psychoactive substance abuse, uncomplicated; E55.9 Vitamin D deficiency, unspecified; Z79.899 Other long term (current) drug therapy

== ENCOUNTER 2024-07-26 20:04 | Emergency (ER) | payer MEDICARE ==
[~2024-07-26] VITALS: Ht 157.5 cm; Wt 66.1 kg
[2024-07-27] MEDS: IBUPROFEN 600MG TAB PO ONE (03:40)
[2024-07-27] MEDS: CIPRODEX OTIC SUSP 7.5ML AD SCH (04:15)
[2024-07-27 04:22] VITALS: BP 129/68; TEMP 97.4; O2SAT 99
[2024-07-27] MEDS ORDERED: CIPRODEX OTIC SUSP 7.5ML AD SCH (09:00)
== END 2024-07-27 04:30 | disposition home or self-care (01) ==
LOC: M ED 20:04
DX: H60.8X1 Other otitis externa, right ear (principal); I10 Essential (primary) hypertension; F17.210 Nicotine dependence, cigarettes, uncomplicated; Z88.0 Allergy status to penicillin; Z88.2 Allergy status to sulfonamides; Z79.899 Other long term (current) drug therapy

== ENCOUNTER 2024-08-03 18:15 | Emergency (ER) | payer MEDICARE ==
[~2024-08-03] VITALS: Ht 157.5 cm; Wt 63.8 kg
[2024-08-04] MEDS: IBUPROFEN 600MG TAB PO ONE (01:01)
[2024-08-04 01:09] VITALS: BP 133/74; TEMP 96.8; O2SAT 96
[2024-08-04] MEDS ORDERED: IBUP-1022 PO (01:42)
== END 2024-08-04 01:52 | disposition home or self-care (01) ==
LOC: M ED 18:15
DX: S30.0XXA Contusion of lower back and pelvis, initial encounter (principal); Y92.019 Unspecified place in single-family (private) house as the place of occurrence of the external cause; Y93.9 Activity, unspecified; Y99.9 Unspecified external cause status; W01.198A Fall on same level from slipping, tripping and stumbling with subsequent striking against other object, initial encounter; E78.5 Hyperlipidemia, unspecified; E03.9 Hypothyroidism, unspecified; K21.9 Gastro-esophageal reflux disease without esophagitis; Z88.0 Allergy status to penicillin; Z88.2 Allergy status to sulfonamides; Z79.1 Long term (current) use of non-steroidal anti-inflammatories (NSAID); Z79.2 Long term (current) use of antibiotics; Z79.899 Other long term (current) drug therapy

== ENCOUNTER 2024-08-17 18:06 | Emergency (ER) | payer MEDICARE ==
[~2024-08-17] VITALS: Ht 156.8 cm; Wt 65.7 kg
[2024-08-17 18:08] VITALS: BP 142/91; TEMP 98; O2SAT 97
[2024-08-17] MEDS: DOXYCYCLINE HYCLATE 100MG TABLET PO ONE (21:05)
[2024-08-17] MEDS ORDERED: CLOTLOT2 TOP (21:07)
[2024-08-17] MEDS ORDERED: DOXY100C3 PO (21:07)
[2024-08-17] MEDS ORDERED: CIPR7.5D2 OT (21:07)
== END 2024-08-17 21:49 | disposition home or self-care (01) ==
LOC: M ED 18:06
DX: H66.93 Otitis media, unspecified, bilateral (principal); B37.2 Candidiasis of skin and nail; F17.210 Nicotine dependence, cigarettes, uncomplicated; F15.10 Other stimulant abuse, uncomplicated; Z88.0 Allergy status to penicillin; Z88.2 Allergy status to sulfonamides; Z79.2 Long term (current) use of antibiotics; Z79.1 Long term (current) use of non-steroidal anti-inflammatories (NSAID); Z79.899 Other long term (current) drug therapy

== ENCOUNTER 2024-09-15 04:21 | Emergency (ER) | payer MEDICARE ==
[~2024-09-15] VITALS: Ht 157.5 cm; Wt 63.7 kg
[~2024-09-15 04:21] MED LIST changes: +CIPR7.5D2 OT; +CLOTLOT2 TOP; +DOXY100C3 PO
[2024-09-15 09:46] VITALS: BP 151/89; TEMP 97.5; O2SAT 99
[2024-09-15] MEDS ORDERED: ACET1TAB37 PO (09:59)
[2024-09-15] MEDS ORDERED: METH-1165 PO (09:59)
[2024-09-15] MEDS ORDERED: MEDR4PAK PO (09:59)
[2024-09-15] MEDS: ACETAMINOPHEN 325 MG TAB PO ONE (10:05)
== END 2024-09-15 10:08 | disposition home or self-care (01) ==
LOC: M ED 04:21
DX: S33.5XXA Sprain of ligaments of lumbar spine, initial encounter (principal); S50.02XA Contusion of left elbow, initial encounter; M51.360 Other intervertebral disc degeneration, lumbar region with discogenic back pain only; M48.061 Spinal stenosis, lumbar region without neurogenic claudication; M54.31 Sciatica, right side; Y92.9 Unspecified place or not applicable; Y93.9 Activity, unspecified; Y99.9 Unspecified external cause status; W00.0XXA Fall on same level due to ice and snow, initial encounter; K21.9 Gastro-esophageal reflux disease without esophagitis; Z88.0 Allergy status to penicillin; Z88.2 Allergy status to sulfonamides; Z79.1 Long term (current) use of non-steroidal anti-inflammatories (NSAID); Z79.899 Other long term (current) drug therapy

== ENCOUNTER 2024-09-18 01:23 | Emergency (ER) | payer MEDICARE, MEDICAID ==
[~2024-09-18 01:23] MED LIST changes: +ACET1TAB37 PO; +MEDR4PAK PO; +METH-1165 PO
[2024-09-18] MEDS: LIDOCAINE 5% (LIDODERM) PATCH TD ONE (07:15)
[2024-09-18] MEDS: ACETAMINOPHEN 325 MG TAB PO ONE (07:15)
[2024-09-18] MEDS: KETOROLAC 60MG 2ML VIAL IM ONE (07:16)
[2024-09-18 09:30] VITALS: BP 129/74; TEMP 96.7; O2SAT 95
[2024-09-19] MEDS ORDERED: CLOT1CRE56 TOP (09:39)
== END 2024-09-18 09:50 | disposition home or self-care (01) ==
LOC: EDBD 01:23 → M ED 01:23
DX: S83.91XA Sprain of unspecified site of right knee, initial encounter (principal); M54.41 Lumbago with sciatica, right side; Y92.410 Unspecified street and highway as the place of occurrence of the external cause; Y93.9 Activity, unspecified; Y99.9 Unspecified external cause status; W01.0XXA Fall on same level from slipping, tripping and stumbling without subsequent striking against object, initial encounter; E03.9 Hypothyroidism, unspecified; K21.9 Gastro-esophageal reflux disease without esophagitis; F41.9 Anxiety disorder, unspecified; F32.A Depression, unspecified; Z88.0 Allergy status to penicillin; Z88.2 Allergy status to sulfonamides; Z79.1 Long term (current) use of non-steroidal anti-inflammatories (NSAID); Z79.2 Long term (current) use of antibiotics; Z79.899 Other long term (current) drug therapy
CPT/HCPCS: 96372; 99284; J1885

== ENCOUNTER 2024-09-19 08:23 | Emergency (ER) | payer MEDICARE, MEDICAID ==
[~2024-09-19] VITALS: Ht 157.5 cm; Wt 62.7 kg
[2024-09-19 08:38] VITALS: BP 164/94; TEMP 96.6; O2SAT 98
[2024-09-19] MEDS ORDERED: CLOT1CRE56 TOP (09:39)
== END 2024-09-19 09:50 | disposition home or self-care (01) ==
LOC: M ED 08:23 → EDBD 08:23 → M ED 09:50
DX: B35.6 Tinea cruris (principal); F15.10 Other stimulant abuse, uncomplicated; Z88.0 Allergy status to penicillin; Z88.2 Allergy status to sulfonamides; Z79.1 Long term (current) use of non-steroidal anti-inflammatories (NSAID); Z79.2 Long term (current) use of antibiotics; Z79.899 Other long term (current) drug therapy

== ENCOUNTER 2024-09-21 00:43 | Emergency (ER) | payer MEDICAID, MEDICARE ==
[~2024-09-21] VITALS: Ht 157.5 cm; Wt 63.5 kg
[~2024-09-21 00:43] MED LIST changes: +CLOT1CRE56 TOP
[2024-09-21 05:07] VITALS: BP 142/90; TEMP 97.2; O2SAT 98
[2024-09-21] MEDS ORDERED: CEPH500C PO (06:49)
== END 2024-09-21 07:00 | disposition home or self-care (01) ==
LOC: M ED 00:43
DX: J02.0 Streptococcal pharyngitis (principal); K21.9 Gastro-esophageal reflux disease without esophagitis; F31.9 Bipolar disorder, unspecified; F19.10 Other psychoactive substance abuse, uncomplicated; Z88.0 Allergy status to penicillin; Z88.2 Allergy status to sulfonamides; Z79.1 Long term (current) use of non-steroidal anti-inflammatories (NSAID); Z79.2 Long term (current) use of antibiotics; Z79.899 Other long term (current) drug therapy

== ENCOUNTER 2024-10-03 06:34 | Emergency (ER) | payer MEDICARE ==
[~2024-10-03] VITALS: Ht 157.5 cm; Wt 65.6 kg
[2024-10-03 06:38] VITALS: BP 183/107; TEMP 97.7; O2SAT 98
== END 2024-10-03 09:06 | disposition left against medical advice (07) ==
LOC: M ED 06:34
DX: Z53.21 Procedure and treatment not carried out due to patient leaving prior to being seen by health care provider (principal)

== ENCOUNTER 2024-10-10 02:03 | Emergency (ER) | payer MEDICARE ==
[~2024-10-10] VITALS: Ht 157.5 cm; Wt 63.5 kg
[2024-10-10 02:10] VITALS: TEMP 98.3
[2024-10-10 04:33] VITALS: BP 144/82; O2SAT 98
== END 2024-10-10 06:31 | disposition left against medical advice (07) ==
LOC: M ED 02:03
DX: Z53.21 Procedure and treatment not carried out due to patient leaving prior to being seen by health care provider (principal)

== ENCOUNTER 2024-10-12 23:57 | Inpatient (IN) | payer MEDICARE ==
[~2024-10-12] VITALS: Ht 157.5 cm; Wt 68.1 kg
[2024-10-13 00:43] LABS: HEMATOCRIT 37.6 % (36.0-47.0); HEMOGLOBIN 12.4 g/dl (12.0-15.5); MEAN CORPUSCULAR HEMOGLOBIN 27.4 pg (27.0-33.0); MEAN CORPUSCULAR VOLUME 83.2 fl (80.0-96.0); PLATELET COUNT, AUTOMATED 480 10^3/uL (150-450); RED BLOOD COUNT 4.52 10^6/uL (4.00-5.40); WHITE BLOOD COUNT 7.9 10^3/uL (4.0-10.0)
[2024-10-13 01:03] LABS: ETHYL ALCOHOL (ETHANOL) < 0.003 % (0.000-0.010)
[2024-10-13 01:04] LABS: HCG, SERUM QUALITATIVE NEGATIVE (NEGATIVE)
[2024-10-13 01:05] LABS: ALBUMIN 3.8 G/DL (3.2-5.2); ALKALINE PHOSPHATASE 77 U/L (35-104); ALT/SGPT 32 U/L (7.0-40); AST/SGOT 46 U/L (<34); BILIRUBIN,DIRECT 0.1 MG/DL (<0.4); BILIRUBIN,TOTAL 0.4 MG/DL (0.3-1.2); BLOOD UREA NITROGEN 13 MG/DL (9-23); CALCIUM LEVEL 9.9 MG/DL (8.5-10.1); CARBON DIOXIDE LEVEL 28 MMOL/L (20-31); CHLORIDE LEVEL 104 MMOL/L (98-107); CREATININE FOR GFR 0.82 MG/DL (0.55-1.30); GLOMERULAR FILTRATION RATE > 60.0 (>58); GLUCOSE, FASTING 102 MG/DL (60-100); POTASSIUM SERUM 4.1 MMOL/L (3.5-5.1); SALICYLATE LEVEL < 3.0 MG/DL (<30); SODIUM LEVEL 139 MMOL/L (136-145); TOTAL PROTEIN 7.3 G/DL (5.7-8.2)
[2024-10-13 01:07] LABS: THYROID STIMULATING HORMONE 136.691 uIU/ML (0.55-4.78)
[2024-10-13 01:26] LABS: BARBITURATES URINE NEGATIVE (NEGATIVE); BENZODIAZEPINES URINE NEGATIVE (NEGATIVE)
[2024-10-13 01:27] LABS: CANNABINOIDS URINE NEGATIVE (NEGATIVE); OPIATES URINE NEGATIVE (NEGATIVE); PHENCYCLIDINE URINE NEGATIVE (NEGATIVE)
[2024-10-13 01:31] LABS: AMPHETAMINES LEVEL URINE POSITIVE (NEGATIVE); COCAINE METABOLITE URINE POSITIVE (NEGATIVE); METHADONE URINE POSITIVE (NEGATIVE)
[2024-10-13 03:39] LABS: FREE T4 0.53 NG/DL (0.89-1.76)
[2024-10-13] MEDS: IBUPROFEN 800 MG TAB PO ONE (06:11)
[2024-10-13] MEDS ORDERED: ACET650T15 PO (06:14)
[2024-10-13] MEDS ORDERED: IBUP-1022 PO (06:16)
[2024-10-13] MEDS ORDERED: LEVO50TA5 PO (06:16)
[2024-10-13] MEDS ORDERED: HOME MED LIST COMPLETE! XX SCH (06:25)
[2024-10-13] MEDS: LEVOTHYROXINE 50MCG TABLET (0.05MG) PO STA (09:10)
[2024-10-13] MEDS ORDERED: traZODone 50 MG TAB PO PRN (11:45)
[2024-10-13] MEDS ORDERED: MOM 30ML SUSPENSION UDC PO PRN (11:45)
[2024-10-13] MEDS ORDERED: LORazepam 1 MG TAB PO PRN (11:45)
[2024-10-13] MEDS ORDERED: ACETAMINOPHEN 325 MG TAB PO PRN (11:45)
[2024-10-13] MEDS ORDERED: diphenhydrAMINE 25MG CAP PO PRN (11:45)
[2024-10-13] MEDS ORDERED: OLANZapine 5 MG TAB PO PRN (11:45)
[2024-10-13] MEDS ORDERED: MAALOX 30 ML SUSP *UDC PO PRN (11:45)
[2024-10-13 13:35] VITALS: BP 151/84; TEMP 98.4; O2SAT 100
[2024-10-14] MEDS: LEVOTHYROXINE 50MCG TABLET (0.05MG) PO SCH (05:29)
[2024-10-14] MEDS ORDERED: LEVOTHYROXINE 50MCG TABLET (0.05MG) PO SCH (06:00)
[2024-10-14 06:37] VITALS: BP 132/92; TEMP 97.1; O2SAT 99
[2024-10-14] MEDS ORDERED: ACETAMINOPHEN 650MG ER TAB (TYLENOL ARTHRITIS) PO PRN (10:05)
[2024-10-14] MEDS ORDERED: IBUPROFEN 600MG TAB PO PRN (10:05)
[2024-10-14] MEDS ORDERED: cloNIDine 0.1MG TABLET PO PRN (10:05)
[2024-10-14] MEDS: lamoTRIgine 25MG TAB PO SCH (10:40)
[2024-10-14] MEDS: METHADONE 10MG TAB PO SCH (10:40)
[2024-10-14] MEDS: LOPERAMIDE 2 MG CAPLET PO ONE (13:47)
[2024-10-14 15:26] VITALS: BP 147/86; TEMP 97.3; O2SAT 98
[2024-10-14] MEDS: IBUPROFEN 400MG TAB PO ONE (16:14)
[2024-10-14] MEDS: LIDOCAINE 5% (LIDODERM) PATCH TD SCH (16:15)
[2024-10-14] MEDS: ANALGESIC BALM CRM 3OZ TOP SCH (17:00)
[2024-10-14] MEDS ORDERED: ANALGESIC BALM CRM 3OZ TOP PRN (19:10)
[2024-10-14] MEDS: NAPROXEN 250 MG TAB PO PRN (20:32)
[2024-10-14] MEDS: OMEPRAZOLE 20MG CAP PO SCH (20:32)
[2024-10-14] MEDS: QUEtiapine FUMARATE 50MG TAB PO SCH (20:32)
[2024-10-15] MEDS: LEVOTHYROXINE 75MCG TABLET (0.075MG) PO SCH (06:14)
[2024-10-15] MEDS: BACLOFEN 10 MG TAB PO SCH (11:25)
[2024-10-15 15:04] VITALS: BP 117/62; TEMP 97.8; O2SAT 96
[2024-10-16] MEDS ORDERED: NICOTINE 21MG/24HR 1 EA TRANSDERMAL TD PRN (14:35)
[2024-10-16 15:18] VITALS: BP 150/91; TEMP 97.4; O2SAT 96
[2024-10-16] MEDS ORDERED: LIDO5TD TD (16:00)
[2024-10-16] MEDS ORDERED: LAMI25TA PO (16:00)
[2024-10-16] MEDS ORDERED: METH85CR11 TOP (16:00)
[2024-10-16] MEDS ORDERED: BACL10TA2 PO (16:00)
[2024-10-16] MEDS ORDERED: QUET50TA4 PO (16:00)
[2024-10-16] MEDS ORDERED: NICO21PAT TD (16:00)
[2024-10-16] MEDS ORDERED: LEVO75TA4 PO (16:00)
== END 2024-10-17 10:00 | DRG 885 ==
LOC: M ED 23:57 → M ED INP 10-13 11:44 → M PSY 10-13 13:38
PROVIDERS: ADMIT Internal Medicine; ATTEND Psychiatry & Neurology Psychiatry
DX: F31.5 Bipolar disorder, current episode depressed, severe, with psychotic features (principal); R45.851 Suicidal ideations; Z59.00 Homelessness unspecified; E03.9 Hypothyroidism, unspecified; F43.10 Post-traumatic stress disorder, unspecified; F90.9 Attention-deficit hyperactivity disorder, unspecified type; F17.210 Nicotine dependence, cigarettes, uncomplicated; F41.9 Anxiety disorder, unspecified; F15.10 Other stimulant abuse, uncomplicated; F14.10 Cocaine abuse, uncomplicated; F11.10 Opioid abuse, uncomplicated; M54.50 Low back pain, unspecified; K21.9 Gastro-esophageal reflux disease without esophagitis; Z63.5 Disruption of family by separation and divorce; Z81.8 Family history of other mental and behavioral disorders; Z56.0 Unemployment, unspecified; G89.29 Other chronic pain; Z88.0 Allergy status to penicillin; Z88.2 Allergy status to sulfonamides; Z91.52 Personal history of nonsuicidal self-harm; Z79.890 Hormone replacement therapy; Z79.899 Other long term (current) drug therapy

== ENCOUNTER 2024-11-20 12:59 | Emergency (ER) | payer MEDICARE, MEDICAID ==
[~2024-11-20] VITALS: Ht 157.5 cm; Wt 71.9 kg
[~2024-11-20 12:59] MED LIST changes: +ACET650T15 PO; +BACL10TA2 PO; +LAMI25TA PO; +LEVO50TA5 PO; +LEVO75TA4 PO; +LIDO5TD TD; +METH85CR11 TOP; +QUET50TA4 PO
[2024-11-20] MEDS: ACETAMINOPHEN 500 MG TAB PO ONE (16:01)
[2024-11-20 16:24] VITALS: BP 117/87; TEMP 97.2; O2SAT 98
== END 2024-11-20 16:30 | disposition home or self-care (01) ==
LOC: M ED 12:59
DX: S22.41XA Multiple fractures of ribs, right side, initial encounter for closed fracture (principal); S63.511A Sprain of carpal joint of right wrist, initial encounter; Y92.410 Unspecified street and highway as the place of occurrence of the external cause; Y93.9 Activity, unspecified; Y99.9 Unspecified external cause status; F15.10 Other stimulant abuse, uncomplicated; Z79.1 Long term (current) use of non-steroidal anti-inflammatories (NSAID); Z79.2 Long term (current) use of antibiotics; Z79.899 Other long term (current) drug therapy

== ENCOUNTER 2024-11-21 11:40 | Emergency (ER) | payer MEDICARE, MEDICAID ==
[~2024-11-21] VITALS: Ht 157.5 cm; Wt 72.3 kg
[2024-11-21 12:11] LABS: BASO % 0.4 % (0.0-1.0); EOS # 1.4 10^3/uL (0.0-0.5); EOS % 16.2 % (0.0-3.0); HEMATOCRIT 35.6 % (36.0-47.0); HEMOGLOBIN 11.3 g/dl (12.0-15.5); LYMPH % 23.9 % (24.0-44.0); MEAN CORPUSCULAR HEMOGLOBIN 27.7 pg (27.0-33.0); MEAN CORPUSCULAR HGB CONC 31.7 g/dl (32.0-36.5); MEAN CORPUSCULAR VOLUME 87.3 fl (80.0-96.0); MONO # 0.5 10^3/uL (0.0-0.8); MONO % 6.2 % (2.0-8.0); NEUTROPHILS # 4.4 10^3/uL (1.5-8.5); NEUTROPHILS % 52.9 % (36.0-66.0); PLATELET COUNT, AUTOMATED 284 10^3/uL (150-450); RED BLOOD COUNT 4.08 10^6/uL (4.00-5.40); WHITE BLOOD COUNT 8.3 10^3/uL (4.0-10.0)
[2024-11-21 12:38] LABS: KETONE, URINE AUTO RFX NEGATIVE (NEGATIVE); NITRITE, URINE AUTO RFX NEGATIVE (NEGATIVE); RBC, URINE AUTO RFX TNTC /HPF (0-3); SQUAM EPITHELIAL CELL UR AURFX 2 /HPF (0-6)
[2024-11-21 12:39] LABS: LEUKOCYTE ESTERASE UR AUTO RFX 2+ (NEGATIVE); WBC, URINE AUTO RFX 76 /HPF (0-3)
[2024-11-21 12:41] LABS: LIPASE 37 U/L (12-53)
[2024-11-21 12:43] LABS: ALBUMIN 3.4 G/DL (3.2-5.2); ALKALINE PHOSPHATASE 73 U/L (35-104); ALT/SGPT 98 U/L (7.0-40); AST/SGOT 37 U/L (<34); BILIRUBIN,DIRECT < 0.1 MG/DL (<0.4); BILIRUBIN,TOTAL 0.2 MG/DL (0.3-1.2); BLOOD UREA NITROGEN 16 MG/DL (9-23); CARBON DIOXIDE LEVEL 30 MMOL/L (20-31); CHLORIDE LEVEL 104 MMOL/L (98-107); CREATININE FOR GFR 0.77 MG/DL (0.55-1.30); GLOMERULAR FILTRATION RATE > 90.0 (>58); GLUCOSE, FASTING 81 MG/DL (60-100); POTASSIUM SERUM 4.3 MMOL/L (3.5-5.1); SODIUM LEVEL 140 MMOL/L (136-145); TOTAL PROTEIN 6.4 G/DL (5.7-8.2)
[2024-11-21 14:57] LABS: HEPATITIS B SURFACE ANTIGEN NEGATIVE (NEGATIVE)
[2024-11-21 15:18] LABS: HEPATITIS B CORE ANTIBODY IGM NEGATIVE (NEGATIVE)
[2024-11-21 15:23] LABS: HEPATITIS C VIRUS ABY INDEX > 11.00 INDEX (<0.8)
[2024-11-21 15:46] VITALS: BP 168/72; TEMP 98.1; O2SAT 98
[2024-11-22 13:57] LABS: HCV RNA QUANTITATION <15 NOT DETECTED IU/mL (NOT DETECTED); HCV RNA log10 <1.18 NOT DETECTED Log IU/mL (NOT DETECTED)
== END 2024-11-21 15:54 | disposition home or self-care (01) ==
LOC: M ED 11:40
DX: S43.401A Unspecified sprain of right shoulder joint, initial encounter (principal); R19.7 Diarrhea, unspecified; K76.0 Fatty (change of) liver, not elsewhere classified; Y92.9 Unspecified place or not applicable; Y93.9 Activity, unspecified; Y99.9 Unspecified external cause status; Z88.0 Allergy status to penicillin; Z88.2 Allergy status to sulfonamides; Z79.1 Long term (current) use of non-steroidal anti-inflammatories (NSAID); Z79.2 Long term (current) use of antibiotics; Z79.899 Other long term (current) drug therapy

== ENCOUNTER 2024-12-02 04:42 | Emergency (ER) | payer MEDICARE, MEDICAID ==
[~2024-12-02] VITALS: Ht 157.5 cm; Wt 72.1 kg
[2024-12-02 04:53] VITALS: TEMP 97.4
[2024-12-02 05:00] VITALS: BP 125/75
[2024-12-02 06:12] VITALS: O2SAT 93
[2024-12-02] MEDS: methocarbamoL 500 MG TAB PO ONE (06:43)
[2024-12-02] MEDS: ACETAMINOPHEN 500 MG TAB PO ONE (06:44)
== END 2024-12-02 08:48 | disposition home or self-care (01) ==
LOC: M ED 04:42 → EDBD 04:42 → M ED 08:48
DX: M54.31 Sciatica, right side (principal); F17.210 Nicotine dependence, cigarettes, uncomplicated; Z88.0 Allergy status to penicillin; Z88.2 Allergy status to sulfonamides; Z79.1 Long term (current) use of non-steroidal anti-inflammatories (NSAID); Z79.2 Long term (current) use of antibiotics; Z79.899 Other long term (current) drug therapy

== ENCOUNTER → 2024-12-13 | Outpatient (CLI) | payer MEDICARE, MEDICAID ==
[~2024-12-13] MED LIST changes: +NAPR-837 PO; +OXYB5TAB14 PO
[2024-12-13 14:56] LABS: HEMOGLOBIN 10.2 g/dl (12.0-15.5); MEAN CORPUSCULAR HEMOGLOBIN 26.9 pg (27.0-33.0); MEAN CORPUSCULAR HGB CONC 31.9 g/dl (32.0-36.5); MEAN CORPUSCULAR VOLUME 84.4 fl (80.0-96.0); PLATELET COUNT, AUTOMATED 331 10^3/uL (150-450); RED BLOOD COUNT 3.79 10^6/uL (4.00-5.40); WHITE BLOOD COUNT 7.7 10^3/uL (4.0-10.0)
[2024-12-13 15:18] LABS: ALBUMIN 3.4 G/DL (3.2-5.2); ALKALINE PHOSPHATASE 59 U/L (35-104); ALT/SGPT 29 U/L (7.0-40); AST/SGOT 32 U/L (<34); BILIRUBIN,TOTAL < 0.2 MG/DL (0.3-1.2); BLOOD UREA NITROGEN 14 MG/DL (9-23); CALCIUM LEVEL 8.7 MG/DL (8.5-10.1); CARBON DIOXIDE LEVEL 30 MMOL/L (20-31); CHLORIDE LEVEL 106 MMOL/L (98-107); CREATININE FOR GFR 0.64 MG/DL (0.55-1.30); GLOMERULAR FILTRATION RATE > 90.0 (>58); GLUCOSE, FASTING 60 MG/DL (60-100); POTASSIUM SERUM 4.3 MMOL/L (3.5-5.1); SODIUM LEVEL 141 MMOL/L (136-145); TOTAL PROTEIN 6.1 G/DL (5.7-8.2)
[2024-12-13 15:20] LABS: HCG, SERUM QUALITATIVE NEGATIVE (NEGATIVE)
[2024-12-13 15:31] LABS: HEPATITIS B SURFACE ANTIGEN NEGATIVE (NEGATIVE)
[2024-12-13 15:44] LABS: HIV 1&2 SCREEN NEGATIVE (NEGATIVE)
[2024-12-13 16:25] LABS: HEPATITIS C VIRUS ABY INDEX > 11.00 INDEX (<0.8)
[2024-12-16 14:33] LABS: GC DNA AMPLIFICATION NEGATIVE (NEGATIVE)
[2024-12-18 17:27] LABS: HCV RNA QUANTITATION <15 NOT DETECTED IU/mL (NOT DETECTED); HCV RNA log10 <1.18 NOT DETECTED Log IU/mL (NOT DETECTED)
== END ==
LOC: M LAB 13:27
PROVIDERS: ATTEND Family Medicine
DX: F11.20 Opioid dependence, uncomplicated (principal); Z11.3 Encounter for screening for infections with a predominantly sexual mode of transmission; Z72.89 Other problems related to lifestyle; Z11.59 Encounter for screening for other viral diseases

== ENCOUNTER 2024-12-14 20:18 | Emergency (ER) | payer MEDICARE, MEDICAID ==
[~2024-12-14] VITALS: Ht 157.5 cm; Wt 76.8 kg
[~2024-12-14 20:18] MED LIST changes: -NAPR-837 PO; -OXYB5TAB14 PO
[2024-12-14 21:47] LABS: KETONE, URINE AUTO RFX NEGATIVE (NEGATIVE); LEUKOCYTE ESTERASE UR AUTO RFX NEGATIVE (NEGATIVE); NITRITE, URINE AUTO RFX NEGATIVE (NEGATIVE); RBC, URINE AUTO RFX 0 /HPF (0-3); SQUAM EPITHELIAL CELL UR AURFX 1 /HPF (0-6); WBC, URINE AUTO RFX 0 /HPF (0-3)
[2024-12-14 23:59] VITALS: BP 184/79; TEMP 98.3; O2SAT 99
[2024-12-15] MEDS ORDERED: NAPR-837 PO (02:42)
[2024-12-15] MEDS ORDERED: OXYB5TAB14 PO (02:42)
[2024-12-15] MEDS: KETOROLAC 60MG 2ML VIAL IM ONE (03:01)
[2024-12-15] MEDS: oxyBUTYnin 5 MG TAB PO ONE (03:01)
== END 2024-12-15 03:36 | disposition home or self-care (01) ==
LOC: M ED 20:18
DX: R35.0 Frequency of micturition (principal); S80.211A Abrasion, right knee, initial encounter; Y92.9 Unspecified place or not applicable; Y93.9 Activity, unspecified; Y99.9 Unspecified external cause status; W01.0XXA Fall on same level from slipping, tripping and stumbling without subsequent striking against object, initial encounter; F17.210 Nicotine dependence, cigarettes, uncomplicated; Z88.0 Allergy status to penicillin; Z88.2 Allergy status to sulfonamides; Z79.1 Long term (current) use of non-steroidal anti-inflammatories (NSAID); Z79.2 Long term (current) use of antibiotics; Z79.899 Other long term (current) drug therapy
CPT/HCPCS: 73560; 81001; 96372; 99283; J1885

== ENCOUNTER → 2024-12-26 | Outpatient (REF) | payer MEDICARE, MEDICAID ==
[~2024-12-26] MED LIST changes: +NAPR-837 PO; +OXYB5TAB14 PO
[2024-12-26 18:43] LABS: BASO % 0.4 % (0.0-1.0); EOS # 0.7 10^3/uL (0.0-0.5); EOS % 8.3 % (0.0-3.0); HEMATOCRIT 31.4 % (36.0-47.0); HEMOGLOBIN 9.8 g/dl (12.0-15.5); LYMPH # 2.3 10^3/uL (1.5-5.0); LYMPH % 28.8 % (24.0-44.0); MEAN CORPUSCULAR HEMOGLOBIN 27.4 pg (27.0-33.0); MEAN CORPUSCULAR HGB CONC 31.2 g/dl (32.0-36.5); MEAN CORPUSCULAR VOLUME 87.7 fl (80.0-96.0); MONO # 0.5 10^3/uL (0.0-0.8); MONO % 6.5 % (2.0-8.0); NEUTROPHILS # 4.4 10^3/uL (1.5-8.5); NEUTROPHILS % 55.7 % (36.0-66.0); PLATELET COUNT, AUTOMATED 368 10^3/uL (150-450); RED BLOOD COUNT 3.58 10^6/uL (4.00-5.40); WHITE BLOOD COUNT 7.8 10^3/uL (4.0-10.0)
[2024-12-26 19:12] LABS: TOTAL IRON BINDING CAPACITY 470 UG/DL (250-425)
[2024-12-26 19:13] LABS: ALBUMIN 3.9 G/DL (3.2-5.2); ALKALINE PHOSPHATASE 59 U/L (35-104); ALT/SGPT 19 U/L (7.0-40); AST/SGOT 27 U/L (<34); BILIRUBIN,TOTAL < 0.2 MG/DL (0.3-1.2); BLOOD UREA NITROGEN 16 MG/DL (9-23); CALCIUM LEVEL 8.7 MG/DL (8.5-10.1); CARBON DIOXIDE LEVEL 30 MMOL/L (20-31); CHLORIDE LEVEL 104 MMOL/L (98-107); CHOLESTEROL LEVEL 227 MG/DL (<200); CHOLESTEROL RISK RATIO 3.57 (<5); GLOMERULAR FILTRATION RATE > 90.0 (>58); GLUCOSE, FASTING 77 MG/DL (60-100); HDL CHOLESTEROL 63.5 MG/DL (>40); IRON (FE) 17 UG/DL (50-170); LDL CHOLESTEROL 136.1 MG/DL (<100); NON-HDL-C 163.5 MG/DL; PERCENT SATURATION 3.6 % (13.2-45.0); POTASSIUM SERUM 4.3 MMOL/L (3.5-5.1); SODIUM LEVEL 140 MMOL/L (136-145); TOTAL PROTEIN 6.4 G/DL (5.7-8.2); TRIGLYCERIDES LEVEL 137 MG/DL (<150)
[2024-12-26 19:16] LABS: THYROID STIMULATING HORMONE 52.431 uIU/ML (0.55-4.78)
[2024-12-26 19:17] LABS: FERRITIN 5.7 NG/ML (7.3-270.7)
[2024-12-26 19:18] LABS: FREE T4 0.75 NG/DL (0.89-1.76)
[2024-12-26 19:51] LABS: THYROGLOBULIN ANTIBODY > 500.0 U/ML (<60.0); THYROID PEROXIDASE ANTIBODY > 1300.0 U/ML (<60.0)
== END ==
LOC: M LAB REF 17:35
PROVIDERS: ATTEND Physician Assistant
DX: I10 Essential (primary) hypertension (principal); N92.1 Excessive and frequent menstruation with irregular cycle; D64.9 Anemia, unspecified; E03.9 Hypothyroidism, unspecified; Z79.899 Other long term (current) drug therapy

== ENCOUNTER → 2025-02-14 | Outpatient (CLI) | payer MEDICARE, MEDICAID | LOC: M RAD 12:31 | PROVIDERS: ATTEND Physician Assistant | DX: E03.9 Hypothyroidism, unspecified (principal) ==

== ENCOUNTER → 2025-03-12 | Outpatient (CLI) | payer MEDICARE, MEDICAID ==
[~2025-03-12] MED LIST changes: +ACET-1515 PO; +ACET-1592 PO; -ACET1TAB37 PO; -ACET650T15 PO
[2025-03-12 20:34] LABS: ALT/SGPT 31 U/L (7.0-40); AST/SGOT 43 U/L (<34); CALCIUM LEVEL 8.7 MG/DL (8.5-10.1); CARBON DIOXIDE LEVEL 25 MMOL/L (20-31); CHLORIDE LEVEL 105 MMOL/L (98-107); CREATININE FOR GFR 0.75 MG/DL (0.55-1.30); GLOMERULAR FILTRATION RATE > 90.0 (>58); POTASSIUM SERUM 4.7 MMOL/L (3.5-5.1); SODIUM LEVEL 141 MMOL/L (136-145); TOTAL 25(OH) VITAMIN D 43.6 NG/ML (20.0-100.0)
== END ==
LOC: M LAB 16:24
PROVIDERS: ATTEND Family Medicine Addiction Medicine
DX: M79.89 Other specified soft tissue disorders (principal); E55.9 Vitamin D deficiency, unspecified; E03.9 Hypothyroidism, unspecified

== ENCOUNTER → 2025-03-28 | Outpatient (CLI) | payer MEDICARE, MEDICAID ==
[~2025-03-28] MED LIST changes: -IBUP-1022 PO; +IBUP600T42 PO
[2025-03-28 12:18] LABS: BASO # 0.0 10^3/uL (0.0-0.2); BASO % 0.3 % (0.0-1.0); EOS # 0.5 10^3/uL (0.0-0.5); EOS % 7.2 % (0.0-3.0); LYMPH # 1.9 10^3/uL (1.5-5.0); LYMPH % 26.7 % (24.0-44.0); MONO # 0.4 10^3/uL (0.0-0.8); MONO % 5.1 % (2.0-8.0); NEUTROPHILS # 4.4 10^3/uL (1.5-8.5); NEUTROPHILS % 60.4 % (36.0-66.0); PLATELET COUNT, AUTOMATED 326 10^3/uL (150-450)
[2025-03-28 12:49] LABS: ALT/SGPT 25 U/L (7.0-40); AST/SGOT 32 U/L (<34); CALCIUM LEVEL 9.0 MG/DL (8.5-10.1); CARBON DIOXIDE LEVEL 30 MMOL/L (20-31); CHLORIDE LEVEL 107 MMOL/L (98-107); CREATININE FOR GFR 0.80 MG/DL (0.55-1.30); GLOMERULAR FILTRATION RATE > 90.0 (>58); IRON (FE) 35 UG/DL (50-170); PERCENT SATURATION 7.5 % (13.2-45.0); POTASSIUM SERUM 4.2 MMOL/L (3.5-5.1); SODIUM LEVEL 144 MMOL/L (136-145)
[2025-03-28 12:52] LABS: VITAMIN B12 LEVEL 376 PG/ML (211-911)
== END ==
LOC: M LAB 11:44
PROVIDERS: ATTEND Physician Assistant
DX: E03.9 Hypothyroidism, unspecified (principal); D50.9 Iron deficiency anemia, unspecified; R60.0 Localized edema